=== PATIENT | male | born 1960 | race Caucasian/White ===

== ENCOUNTER 2019-06-18 09:49 | Inpatient (IN) ==
[2019-06-18] MEDS ORDERED: ONDANSETRON INJ 2 MG/ML 2 ML VIAL IV STA (10:10)
[2019-06-18] MEDS ORDERED: FAMOTIDINE 20MG/5ML IV PUSH IV STA (10:10)
[2019-06-18] MEDS ORDERED: MoRPHine SULFATE 4 MG/ML 1 ML CARP\\VIAL IV PRN ×2 (10:10→14:16)
[2019-06-18] MEDS ORDERED: SODIUM CHLORIDE 0.9% 500 ML IV SCH (10:15)
[2019-06-18 10:21] LABS: Basophils # (auto) 0.03 K/uL (0-0.2); Basophils % (auto) 0.4 %; Eosinophils # (auto) 0.23 K/uL (0-0.5); Eosinophils % (auto) 2.7 %; Hemoglobin 14.3 g/dL (14.0-18.0); Immature Granulocytes # (auto) 0.03 K/uL (0.00-0.02); Immature Granulocytes % (auto) 0.4 %; Lymphocytes # (auto) 1.52 K/uL (1.2-3.4); Lymphocytes % (auto) 18.1 %; Mean Corpuscular Hemoglobin 27.2 pg (25-34); Mean Corpuscular Volume 79.8 fL (80-100); Mean Platelet Volume 9.4 fL (7.4-10.4); Monocytes # (auto) 0.39 K/uL (0.11-0.59); Monocytes % (auto) 4.6 %; Neutrophils # (auto) 6.21 K/uL (1.4-6.5); Neutrophils % (auto) 73.8 %; Platelet Count 247 K/uL (130-400); RDW Coefficient of Variation 16.4 % (11.5-14.5); RDW Standard Deviation 47.9 fL (36.4-46.3); Red Blood Count 5.26 M/uL (4.7-6.1); White Blood Count 8.41 K/uL (4.8-10.8)
[2019-06-18 10:29] LABS: Alanine Aminotransferase 170 U/L (12-78); Albumin Level 4.3 gm/dl (3.4-5.0); Aspartate Aminotransferase 190 U/L (15-37); BUN Creatinine Ratio 9.3 (10-20); Blood Urea Nitrogen 11 mg/dl (7-18); Calcium 9.2 mg/dl (8.5-10.1); Carbon Dioxide 24 mmol/L (21-32); Chloride 101 mmol/L (98-107); Creatinine Clr Calc Pharmacy 79.5 ml/min; Est GFR (African American) 75.5; Est GFR (Non-African American) 65.1; Glucose 284 mg/dl (70-99); Lipase 585 U/L (73-393); Potassium 4.3 mmol/L (3.5-5.1); Sodium 133 mmol/L (136-145)
[2019-06-18 10:30] LABS: Partial Thromboplastin Ratio 0.9; Partial Thromboplastin Time 24.2 Seconds (21.0-31.0); Prothrombin Time 10.5 Seconds (9.0-12.0)
[2019-06-18 10:34] LABS: Albumin Globulin Ratio 1.1 (0.9-2); Alkaline Phosphatase 107 U/L (45-117); Globulin 3.8 gm/dl (2.5-4.0); Total Protein 8.1 gm/dl (6.4-8.2); Troponin I < 0.015 ng/ml (0-0.045)
--- NOTE | 2019-06-18 10:43 | XRay Report ---
XR chest 1V portable CLINICAL HISTORY: cp dyspnea COMPARISON STUDY: No previous studies for comparison. FINDINGS: Minimal atelectasis left base. Lungs otherwise appear clear. Diaphragms are smooth. No evid ence for cardiac enlargement. IMPRESSION: Minimal atelectasis left base. Otherwise negative study. The above report was generated using voice recognition software. It may contain grammatical, syntax or spelling errors. Electronically signed by: Mendoza Florentino M.D. 06/18/2019 10:42 AM
--- NOTE | 2019-06-18 10:57 | CT Scan Report ---
CT OF THE ABDOMEN AND PELVIS WITHOUT CONTRAST CLINICAL HISTORY: Severe pain, possible bowel rupture or obstruction. COMPARISON STUDY: No previous studies for comparison. TECHNIQUE: Axial images of the abdomen and pelvis were obtained without IV contrast. Images were revi ewed in the axial, sagittal, and coronal planes. Automated exposure control was utilized for the zaire dy. A dose lowering technique was utilized adhering to the principles of ALARA. FINDINGS: Lung bases are unremarkable. There is fatty infiltration of the liver. There is mild biliar y ductal dilatation. There are numerous calculi within the common bile duct that measure up to approx imately 1.2 cm. There are gallstones within the gallbladder. There is no definite pericholecystic inf iltration. The gallbladder is slightly distended. There is no peripancreatic infiltration. No pancrea tic ductal dilatation is present. Evaluation of the abdomen and pelvis is suboptimal on this unenhanc ed examination. The spleen, adrenal glands and kidneys are unremarkable. There is no hydronephrosis. Mild mesenteric infiltration is noted with small lymph nodes. There is colonic diverticulosis without evidence for acute diverticulitis. The appendix is normal. No suspicious osseous lesions are noted. There is no lymphadenopathy. No free air, pneumatosis or portal venous gas is present. IMPRESSION: 1. Numerous common bile duct calculi that measure up to approximately 1.2 cm. Mild biliary ductal dil atation. No peripancreatic infiltration. 2. Cholelithiasis. Mild gallbladder distention without significant pericholecystic infiltration. 3. Fatty liver. 4. 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 Electronically signed by: Bryan Last M.D. 06/18/2019 10:56 AM
--- NOTE | 2019-06-18 11:42 | Surgery Consultation ---
Date of Consultation June 18, 2019 Assessment & Plan (1) Choledocholithiasis: This is a 59y M who presents to the [facility] ED on 06/18/19 with complaints of chest pain and shortness of breath. Workup included a CT a/p which revealed multiple common bile duct stones, mild biliary ductal dilation, and gallstones with mild gallbladder distention. Cardiac workup thus far has been unremarkable and troponin negative. Labs showing normal WBC and tbili:1.0, but elevated transaminases and a lipase of 585. Would recommend admission under medicine with a GI consultation for consideration of an ERCP vs further imaging. We will follow along with you for any surgical needs this admission. Supervising Physician Co-Signing Physician Notes Patient seen and examined, labs and imaging reviewed, agree with above. 59-year-old male who presented to the emergency department with epigastric and chest pain starting this morning. Pain is slightly improved. No prior episodes in the past. On exam he is mildly tender to palpation in the right upper quadrant epigastrium, no guarding or rebound. Afebrile, vital signs stable. Labs show mildly elevated LFTs and bilirubin, along with an elevated lipase. CT scan showed cholelithiasis with some dilated common bile duct and likely choledocholithiasis. Of note his brother did have pancreatic cancer, and he has UC. Assessment: Choledocholithiasis with gallstone pancreatitis Patient admitted to medicine, GI consulted for ERCP, plan for ERCP tomorrow Plan for laparoscopic cholecystectomy likely this hospital stay after pancreatitis resolves The risk the procedure were discussed to include but not limited to bleeding, infection, retained stone, bile leak, damage surrounding structures including common bile duct, need for future more extensive surgery, conversion open, and the risk of anesthesia History of Present Illness History of Present Illness This is a 59y M with a PMH of ulcerative colitis and DM2 who presents to [facility] ED on 06/18/19 with complaints of chest pain and shortness of breath. Patient states that the chest pain developed this AM while walking around at work and when he developed progressive shortness of breath, he requested a ride to the ED from a co-worker. EKG in the ED was limited, but appears to be NSR. CXR showed some atelectasis and troponin negative. A CT a/p was obtained that revealed numerous common bile duct calculi that measure up to approximately 1.2 cm, mild biliary ductal dilatation, cholelithiasis, and mild gallbladder distention without significant pericholecystic infiltration. WBC 8.41, Tbili: 1, AST 190, AL: 170, alkp: 170, and lipase 585. General surgery was consulted for further evaluation given gallbladder findings. Patient states he ate cheerio's at breakfast. Patient denies any nausea, vomiting, diarrhea, constipation, abdominal pain, bloating, fevers, or urinary symptoms. His last BM was this AM. Patient had vasectomy x2, but denies any abdominal surgery in the past. Allergies Allergy/AdvReac Type Severity Reaction Status Date / Time No Known Allergies Allergy Unverified 06/18/19 12:05 Patient History Medical History No pertinent past medical history Type 2 diabetes mellitus Ulcerative colitis Family History Other No pertinent family history in first degree relatives Social History Preferred Language: Austrian Communication Ability: Effective Youth Liaison Officer Required: No Beliefs That Will Affect Care: None Current Living Situation: Spouse and Family Other Information That Helps Us Care for You: No Feels Safe at Home: Yes Safety Concerns: Feels Safe At This Time Smoking Status: Never smoker Do You Dip or Chew Tobacco: No ; Second Hand Exposure: No ; Tobacco Cessation Education Requested by Patient: No Hx Alcohol Use: Yes Hx Substance Use: No Review of Systems Constitutional: + chills and + sweats; no fever Respiratory: + dyspnea on exertion Cardiovascular: + chest pain Gastrointestinal: no abdominal pain, no bloating, no nausea, no vomiting and no change in bowel habits Genitourinary: no dysuria Physical Exam Physical Exam: awake/alert. shivering despite multiple blankets Constitutional: well developed, well nourished and + ill appearing Cardiovascular: Rate/Rhythm: regular rate Gastrointestinal (Abdomen): Percussion/Palpation: + guarding (likely due to shivering/chills); abdomen nontender Results & Data Vital Signs (Past 12 Hours) Vital Signs Temp Pulse Resp BP Pulse Ox 06/18/19 09:55 36.5 C 95 H 24 169/[address] OF THE ABDOMEN AND PELVIS WITHOUT CONTRAST CLINICAL HISTORY: Severe pain, possible bowel rupture or obstruction. COMPARISON STUDY: No previous studies for comparison. TECHNIQUE: Axial images of the abdomen and pelvis were obtained without IV contrast. Images were reviewed in the axial, sagittal, and coronal planes. Automated exposure control was utilized for the study. A dose lowering technique was utilized adhering to the principles of ALARA. FINDINGS: Lung bases are unremarkable. There is fatty infiltration of the liver. There is mild biliary ductal dilatation. There are numerous calculi within the common bile duct that measure up to approximately 1.2 cm. There are gallstones within the gallbladder. There is no definite pericholecystic infiltration. The gallbladder is slightly distended. There is no peripancreatic infiltration. No pancreatic ductal dilatation is present. Evaluation of the abdomen and pelvis is suboptimal on this unenhanced examination. The spleen, adrenal glands and kid neys are unremarkable. There is no hydronephrosis. Mild mesenteric infiltration is noted with small lymph nodes. There is colonic diverticulosis without evidence for acute diverticulitis. The appendix is normal. No suspicious osseous lesions are noted. There is no lymphadenopathy. No free air, pneumatosis or portal venous gas is present. IMPRESSION: 1. Numerous common bile duct calculi that measure up to approximately 1.2 cm. Mild biliary ductal dilatation. No peripancreatic infiltration. 2. Cholelithiasis. Mild gallbladder distention without significant pericholecystic infiltration. 3. Fatty liver. 4. 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 Electronically signed by: Bryan Last M.D. 06/18/2019 10:56 AM XR chest 1V portable CLINICAL HISTORY: cp dyspnea COMPARISON STUDY: No previous studies for comparison. FINDINGS: Minimal atelectasis left base. Lungs otherwise appear clear. Diaphragms are smooth. No evidence for cardiac enlargement. IMPRESSION: Minimal atelectasis left base. Otherwise negative study. The above report was generated using voice recognition software. It may contain grammatical, syntax or spelling errors. PG Care Time/CCT Total # of Minutes Spent Total Time Spent with Patient: Total time spent is greater than 50% in coordination of care (as documented) at patient's floor/unit and/or counseling patient:
--- NOTE | 2019-06-18 12:22 | History & Physical Report ---
Date of Service June 18, 2019 Assessment & Plan (1) Choledocholithiasis: This is a 59yo M with a PMH of DM II, ulcerative colitis, HTN, HLD and other medical problems listed below who presents with chest pain beginning this morning and was found to have choledocholithiasis and acute pancreatitis. -Epigastric/chest pain related to pancreatitis, choledocholithiasis -No troponin elevation, EKG with normal sinus rhythm -Tachycardic with HR ~ 115. Elevated liver enzymes with AST of 190 and ALT of 170. Lipase elevated at 585 -CT abd/pelvis w/o contrast showed multiple gallstones and CBD stones, mild biliary ductal dilatation, fatty liver, and mesenteric infiltration with small associated lymph nodes which favors sclerosing mesenteritis -Per GI:Continue IV fluids, advance to clear liquids, keep NPO after midnight for ERCP tomorrow 06/[address] Morgan Coker -Per gen surgery: plan for laparoscopic cholecystectomy likely this hospital stay after pancreatitis resolves -Started on empiric zosyn for possible ascending cholangitis in setting of chills and tachycardia. Follow blood cultures (2) Acute pancreatitis: Lipase of 585 in setting of choledocholithiasis -IV fluid resuscitation. Pain control -Advanced diet to clear liquids (3) Ulcerative colitis: Follows with Dr. Shields in clinic -Continue Lialda (4) Type 2 diabetes mellitus: A1c of 7.2 in December 2018. Repeat a1c ordered -Hold home agents -SSI while in-patient -BSG AC HS (5) HTN (hypertension): Normotensive -Continue lisinopril (6) HLD (hyperlipidemia): Continue statin (7) GERD (gastroesophageal reflux disease): Continue PPI DVT Ppx: SCDs Code status: FULL PCP: Jewel Dispo: Admitted to PCU. Plan to return home once medically stable. Patient seen in collaboration with Dr. Allred. Please see addendum. History of Present Illness Chief Complaint: chest pain Primary Care Provider: Mayo Holloway MD This is a 59yo M with a PMH of DM II, ulcerative colitis, HTN, HLD and other medical problems listed below who presents with chest pain beginning this morning. Developed chest pain/lower sternal pain around 0830 this morning with associated nausea, shortness of breath, chills and swelling. No radiation to jaw or arms. States that pain felt crushing and rated it a 7/10. Was having breakfast around the time that pain started. Came to ED for further evaluation. Found to be afebrile and tachycardic with HR 95-115. EKG with normal sinus rhythm. Initial troponin negative. Noted to have elevated liver enzymes with AST of 190 and ALT of 170. Lipase elevated at 585. 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 Pain had resolved after being given morphine in the ED. No longer nauseous. Denies any lightheadedness, visual changes, palpitations, shortness of breath, vomiting, dysuria, diarrhea or constipation. Has 2-3 bowel movements a day at baseline in setting of ulcerative colitis. Allergies Allergy/AdvReac Type Severity Reaction Status Date / Time No Known Allergies Allergy Unverified 06/18/19 12:05 Home Medications Home Medications Medication Instructions Recorded Confirmed Type aspirin 81 mg PO Q2D 06/18/19 06/18/19 History atorvastatin 20 mg PO HS 06/18/19 06/18/19 History cyanocobalamin (vitamin B-12) 1,000 mcg SUBLINGUAL DAILY 06/18/19 06/18/19 History dicyclomine 10 mg PO BID 06/18/19 06/18/19 History fenofibrate 160 mg PO HS 06/18/19 06/18/19 History glyburide 5 mg PO BID 06/18/19 06/18/19 History lisinopril 10 mg PO DAILY 06/18/19 06/18/19 History mesalamine [Lialda] 1.2 g PO BID 06/18/19 06/18/19 History metformin 500 mg PO BID 06/18/19 06/18/19 History omeprazole 20 mg PO Q2D 06/18/19 06/18/19 History sildenafil 100 mg PO DAILY PRN 06/18/19 06/18/19 History Past Med/Surg History Medical History GERD (gastroesophageal reflux disease) (Chronic) HLD (hyperlipidemia) (Chronic) HTN (hypertension) (Chronic) Ulcerative colitis (Chronic) Type 2 diabetes mellitus (Chronic) Surgical History History of colonoscopy (Chronic) History of esophagogastroduodenoscopy (EGD) (Chronic) Family History Brother Pancreatic cancer Gastric cancer Other Heart disease Social History Preferred Language: Zambian Communication Ability: Effective Coal Sampler Required: No Beliefs That Will Affect Care: None Current Living Situation: Spouse and Family Other Information That Helps Us Care for You: No Feels Safe at Home: Yes Safety Concerns: Feels Safe At This Time Smoking Status: Never smoker Do You Dip or Chew Tobacco: No ; Second Hand Exposure: No ; Tobacco Cessation Education Requested by Patient: No Hx Alcohol Use: Yes Alcohol type: beer Alcohol Intake Frequency: Weekly Alcohol Intake Frequency Comment: 10-12 beers weekly Hx Substance Use: No Review of Systems Review of Systems: At least ten systems reviewed and negative except as noted in the HPI. Physical Exam Physical Exam: General Appearance: WD/WN, vitals as above, NAD, pleasant, conversing easily Head: normocephalic, atraumatic Eyes: normal inspection, PERRL, conjunctivae normal, anicteric sclerae ENT: external ear and nose normal, oropharynx normal Neck: trachea midline, no thyromegaly normal visual inspection Respiratory: lungs clear to auscultation, no wheeze, rales, rhonchi. Normal insp/exp effort, no accessory muscle use Cardiovascular: regular rate, rhythm, no murmur appreciated, normal peripheral pulses. Vessels: no JVD or carotid bruit Chest: normal inspection of chest, no chest wall tenderness to palpation Abdomen/GI: normal bowel sounds, soft, nontender, no hepatosplenomegaly Extremities/Musculoskelatal: no cyanosis or clubbing, extremities motor strength 5/5 Neurologic: PERRL, EOMI, accommodation nl, no face palsy, no dysarthria CN's II-XI intact bilaterally and moves all extremities Psychiatric: A+Ox3, euthymic affect Skin: no rashes, normal color, warm/dry Results & Data Vital Signs (Past 12 Hours) Vital Signs Temp Pulse Resp BP Pulse Ox 06/18/19 09:55 36.5 C 95 H 24 169/98 H 97 Laboratory Results Short CBC 06/18/19 Range/Units 10:04 WBC 8.41 (4.8-10.8) K/uL Hgb 14.3 (14.0-18.0) g/dL Hct 42.0 (42-52) % Plt Count 247 (130-400) K/uL BMP 06/18/19 10:04 Sodium 133 L Potassium 4.3 Chloride 101 Carbon Dioxide 24 BUN 11 Creatinine 1.21 Glucose 284 H Calcium 9.2 Cardiac Enzymes 06/18/19 Range/Units 10:04 Troponin I < 0.015 (0-0.045) ng/ml Liver Function 06/18/19 Range/Units 10:04 Total Bilirubin 1.0 (0.2-1) mg/dl AST 190 H (15-37) U/L ALT 170 H (12-78) U/L Alkaline Phosphatase 107 (45-117) U/L Albumin 4.3 (3.4-5.0) gm/dl Urine 06/18/19 Range/Units 13:14 Urine Color Yellow Urine Appearance Clear (Clear) Urine pH 5.5 (4.5-7.5) Ur Specific [place] 1.019 (1.000-1.030) Urine Protein Negative (Negative) Urine Glucose (UA) 3+ H (Negative) Diagnostic Findings CXR: IMPRESSION: Minimal atelectasis left base. Otherwise negative study. CT abd/pelvis: IMPRESSION: 1. Numerous common bile duct calculi that measure up to approximately 1.2 cm. Mild biliary ductal dilatation. No peripancreatic infiltration. 2. Cholelithiasis. Mild gallbladder distention without significant pericholecystic infiltration. 3. Fatty liver. 4. 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 Code Status & VTE Plan VTE Prophylaxis Plan VTE Prophylaxis will be ordered: Yes Supervising Physician Co-Signing Physician Notes I have seen and examined the patient and have discussed the case with the provider above. I agree with the assessment and plan as stated with the following exceptions. The patient is a 59 yo M with gallstones who presents with acute lower chest pain. Cardiac workup was negative, however, elevated LFTs prompted imaging revealing evidence of choledocholithiasis. He does reports chills but no fevers. He does report some improvement in his chest pain since having some IVF in the ER, but his fluid were increased when tachycardia developed. Physical exam otherwise demonstrated a WNWD man in no acute distress who was mentating normally. Mucous membranes are dry. He had some TTP in the RUQ area but otherwise his abdomen was soft and nondistended. Lungs were clear to auscultation and heart exam was normal. No peripheral edema or JVD was present. He was oxygenating well on room air. Cont empiric Zosyn in setting of chills and tachycardia. Blood cultures pending. Appreciate GI input and plans for ERCP in am. General surgery consulted and plans for lap robby at some point. Cont LR @ 200cc/hr overnight and supportive care with pain control and anti-emetics as needed. DO Chalino (1) Acute pancreatitis Acute pancreatitis complication: unspecified Pancreatitis type: unspecified pancreatitis type Qualified Code(s): K85.90 - Acute pancreatitis without necrosis or infection, unspecified
--- NOTE | 2019-06-18 12:30 | Gastrointestinal Consultation ---
Date of Consultation June 18, 2019 Assessment & Plan (1) Choledocholithiasis: (2) Gallstones: (3) Elevated LFTs: Pt is a 59 y/o male who presented w mid CP, diaphoresis, and nausea w negative cardiac workup. Noted to have elevated LFTs and Lipase on eval, CT abd/pelvis w/o contrast showed signs of gallstones, CBD stones, dilated CBD to 1.2cm. ? mesenteric infiltration. - IVF support - OK for CL diet today, keep NPO after midnight for ERCP tomorrow 06/[address] Morgan Coker - Trend LFTs - Surgery following, appreciate recs - Symptomatic management w analgesics and antiemetics for now Supervising Physician Co-Signing Physician Notes Attending attestation I have seen, examined this patient, and agree with the findings and above by our mid-level provider JAMES Noonan, with the following additions -soft abdomen, -acute onset of epigastric/lower chest pain, cardiology w/o normal -CT with choledocholithiasis -Plan for ERCP tomorrow -Cholecystectomy per General Surgery History of Present Illness Reason for Consultation: Choledocholithiasis Requesting Physician: Dr. Karin Allred Attending Physician: Dr. Jason Bolaños History of Present Illness Pt is a 59 y/o male w hx of Ulcerative colitis controlled w Lialda who presented to ED w c/o chest pain started around 8:30a. He had breakfast around that time, cereal and banana. He started having mid chest pain w/o radiating associated w diaphoresis and nausea. He went to work and when pain got worse decided to go to ED for evaluation. VS stable, EKG and Troponin level is normal. It's noted that his transaminases were up in 100s, Lipase in 500s. CT abd/pelvis w/o contrast showed multiple gallstones and CBD stones, CBD 1.2cm, fatty liver, and mesenteric infiltration ? sclerosing mesenteritis. He had been given Morphine in ED, currently pain free and no longer having nausea. Allergies Allergy/AdvReac Type Severity Reaction Status Date / Time No Known Allergies Allergy Unverified 06/18/19 12:05 Home Medications Home Medications Medication Instructions Recorded Confirmed Type aspirin 81 mg PO Q2D 06/18/19 06/18/19 History atorvastatin 20 mg PO HS 06/18/19 06/18/19 History cyanocobalamin (vitamin B-12) 1,000 mcg SUBLINGUAL DAILY 06/18/19 06/18/19 History dicyclomine 10 mg PO BID 06/18/19 06/18/19 History fenofibrate 160 mg PO HS 06/18/19 06/18/19 History glyburide 5 mg PO BID 06/18/19 06/18/19 History lisinopril 10 mg PO DAILY 06/18/19 06/18/19 History mesalamine [Lialda] 1.2 g PO BID 06/18/19 06/18/19 History metformin 500 mg PO BID 06/18/19 06/18/19 History omeprazole 20 mg PO Q2D 06/18/19 06/18/19 History sildenafil 100 mg PO DAILY PRN 06/18/19 06/18/19 History Patient History Medical History No pertinent past medical history Type 2 diabetes mellitus Ulcerative colitis Family History Other No pertinent family history in first degree relatives Social History Preferred Language: Malay Communication Ability: Effective Funnel Setter Required: No Beliefs That Will Affect Care: None Current Living Situation: Spouse and Family Other Information That Helps Us Care for You: No Feels Safe at Home: Yes Safety Concerns: Feels Safe At This Time Smoking Status: Never smoker Do You Dip or Chew Tobacco: No ; Second Hand Exposure: No ; Tobacco Cessation Education Requested by Patient: No Hx Alcohol Use: Yes Hx Substance Use: No Review of Systems Review of Systems: All systems reviewed & are unremarkable except as noted in HPI & below Physical Exam Constitutional: WD/WN, vitals as above well groomed, cooperative and comfortable Eyes: PERRL, conjunctivae normal, anicteric sclerae ENMT: external ear and nose normal, oropharynx normal Respiratory: normal respiratory effort, lungs clear to auscultation Cardiovascular: RRR, no murmur, no edema Gastrointestinal (Abdomen): normal bowel sounds, soft, nontender, no hepatosplenomegaly Skin: no rashes, warm and dry no jaundice Psychiatric: A+Ox3, euthymic affect Lymphatic: no lymphedema Results & Data Vital Signs (Past 12 Hours) Vital Signs Temp Pulse Resp BP Pulse Ox 06/18/19 09:55 36.5 C 95 H 24 169/98 H 97
[2019-06-18 13:23] LABS: Appearance Urine Clear (Clear); Bilirubin Urine Negative (Negative); Blood Urine Negative (Negative); Color Urine Yellow; Glucose Urine UA 3+ (Negative); Ketones Urine Negative (Negative); Leukocyte Esterase Urine Negative (Negative); Nitrite Urine Negative (Negative); Protein Urine Negative (Negative); Specific Gravity Urine 1.019 (1.000-1.030); Urobilinogen Urine Negative (Negative); pH Urine 5.5 (4.5-7.5)
--- NOTE | 2019-06-18 13:58 | Emergency Department Note ---
Entered by Serafin Mejia acting as a scribe for Vipul Conte MD History of Present Illness General Chief complaint: Chest Pain Stated complaint: CHEST PAIN, SOB Time Seen by Provider: 06/18/19 10:10 Source: patient History of Present Illness Provider complaint: Chest pain Onset (ago): hour(s) 2 Location: chest Radiation: non-radiation Pain Consistency: + constant Maximum Pain Intensity: 8 Current Pain Intensity: 8 Relieved By: + none Exacerbated By: + other (Lying flat) Associated symptoms: + diaphoresis, + nausea/vomiting (No vomiting) and + shortness of breath The patient is a 59 year old male who presents to the Emergency Room with complaints of constant central chest pain that started about 2 hours ago. The patient rates the pain as an 8/10 and notes it is worse while he is lying flat. The patient reports that the pain does not radiate anywhere. The patient also endorses some shortness of breath and nausea. The patient adds that he is starting to feel diaphoretic as well. The patient states the chest pain started while he was walking leisurely and he has never experienced pain like this before. The patient reports that he has been healthy for the past few days. He also denies any cardiac history. Home Medications Home Medications Medication Instructions Recorded Confirmed Type aspirin 81 mg PO Q2D 06/18/19 06/18/19 History atorvastatin 20 mg PO HS 06/18/19 06/18/19 History cyanocobalamin (vitamin B-12) 1,000 mcg SUBLINGUAL DAILY 06/18/19 06/18/19 History dicyclomine 10 mg PO BID 06/18/19 06/18/19 History fenofibrate 160 mg PO HS 06/18/19 06/18/19 History glyburide 5 mg PO BID 06/18/19 06/18/19 History lisinopril 10 mg PO DAILY 06/18/19 06/18/19 History mesalamine [Lialda] 1.2 g PO BID 06/18/19 06/18/19 History metformin 500 mg PO BID 06/18/19 06/18/19 History omeprazole 20 mg PO Q2D 06/18/19 06/18/19 History sildenafil 100 mg PO DAILY PRN 06/18/19 06/18/19 History Allergies Allergy/AdvReac Type Severity Reaction Status Date / Time No Known Allergies Allergy Unverified 06/18/19 12:05 Past Med/Surg History Medical History No pertinent past medical history Type 2 diabetes mellitus Ulcerative colitis Family History Other No pertinent family history in first degree relatives Social History Preferred Language: Greenlandic Communication Ability: Effective Works[employer] Wellness Practitioner Required: No Beliefs That Will Affect Care: None Current Living Situation: Spouse and Family Other Information That Helps Us Care for You: No Feels Safe at Home: Yes Safety Concerns: Feels Safe At This Time Smoking Status: Never smoker Do You Dip or Chew Tobacco: No ; Second Hand Exposure: No ; Tobacco Cessation Education Requested by Patient: No Hx Alcohol Use: Yes Hx Substance Use: No Review of Systems See HPI for pertinent positives & negatives. and A total of 10 systems reviewed and were otherwise negative Physical Exam Vital Signs Vital Signs - 24 hr 06/18/19 09:55 06/18/19 10:31 Temperature 36.5 C Temperature Source Oral Sepsis Recent Fever Within 48 Hours No Sepsis New/Unexplained Change in Mental Status No Sepsis Action Taken by Nursing No Action Required Pulse Rate 95 H Respiratory Rate 24 Blood Pressure 169/98 H Blood Pressure Mean 121 Pulse Oximetry 97 Oxygen Delivery Method Room Air Room Air GENERAL: Patient is in moderate distress from pain. HEENT: No acute trauma, normocephalic atraumatic, mucous membranes moist, no nasal congestion, no scleral icterus. NECK: No stridor, no adenopathy, no meningismus, trachea is midline. LUNGS: Clear to auscultation bilaterally, no wheeze, no rhonchi, breath sounds equal. HEART: Without murmurs gallops or rubs, regular rate and rhythm. ABDOMEN: Soft, moderately tender to the epigastric region, bowel sounds positive, no hernias, no peritonitis. CHEST: Tender to the lower mid sternal chest wall. EXTREMITIES: No cyanosis or edema, full range of motion of all the joints without pain or difficulty, no signs for acute trauma. NEUROLOGIC: Oriented x 3, no acute motor or sensory deficits, no focal weakness. SKIN: No rash, no jaundice. Pale and mildly diaphoretic. Course 1007: Past medical records reviewed. The patient was evaluated in room C10, and a complete history and physical examination were performed. 1102: I spoke to [facility] PAC about the patient's case. He suggested I contact medicine and/or GI to accept the patient but surgery will be on consult. 1105: I reevaluated and updated the patient on results. We also discussed the treatment plan and he is agreeable. 1113: I spoke to Naina Orozco Lesly PAC, under Dr. Cahlino Grant about the patient's case. They are going to accept the patient for further evaluation. Consultations Consultation #1: I spoke to [facility] PAC about the patient's case. He suggested I contact medicine and/or GI to accept the patient but surgery will be on consult. Time: 11:02 Consultation #2: I spoke to Naina Grace PAC, under Dr. Chalino Grant about the patient's case. They are going to accept the patient for further evaluation. Time: 11:13 Administered Medications Discontinued Medications Famotidine (Pepcid 20mg Iv Push) 20 mg IV ONE STA Stop: 06/18/19 10:11 Last Admin: 06/18/19 10:22 Dose: 20 mg Documented by: [id number] Sodium Chloride (Nss) 500 mls @ 999 mls/hr IV .Q31M ARCELIA Stop: 06/18/19 10:45 Last Infusion: 06/18/19 10:57 Dose: 0 mls/hr Documented by: [id number] Admin: 06/18/19 10:23 Dose: 999 mls/hr Documented by: [id number] Morphine Sulfate (Morphine Sulfate) 4 mg IV Q15M PRN PRN Reason: Pain Stop: 07/02/19 10:09 Last Admin: 06/18/19 10:23 Dose: 4 mg Documented by: [id number] Ondansetron HCl (Zofran) 4 mg IV NOW STA Stop: 06/18/19 10:11 Last Admin: 06/18/19 10:23 Dose: 4 mg Documented by: [id number] Medical Decision Making Differential Diagnosis Differential Diagnosis includes: PR, angina, aortic dissection, AAA, bowel rupture, pancreatitis, biliary colic, musculoskeletal pain, pneumonia, hernia, and bowel obstruction, amongst others. Medical Records Attestation: I reviewed the patient's medical records. Home Medications Current Medication List: was personally reviewed by me Laboratory Data Attestation: I reviewed the patient's lab results. Result diagrams: 06/18/19 10:04 06/18/19 10:04 Lab Results 06/18/19 06/18/19 06/18/19 Range/Units 10:04 10:04 10:04 WBC 8.41 (4.8-10.8) K/uL RBC 5.26 (4.7-6.1) M/uL Hgb 14.3 (14.0-18.0) g/dL Hct 42.0 (42-52) % MCV 79.8 L (80-100) fL MCH 27.2 (25-34) pg MCHC 34.0 (32-36) g/dL RDW Std Deviation 47.9 H (36.4-46.3) fL RDW Coeff of Gala 16.4 H (11.5-14.5) % Plt Count 247 (130-400) K/uL MPV 9.4 (7.4-10.4) fL Immature Gran % (Auto) 0.4 % Neut % (Auto) 73.8 % Lymph % (Auto) 18.1 % [place] % (Auto) 4.6 % Eos % (Auto) 2.7 % Baso % (Auto) 0.4 % Immature Gran # (Auto) 0.03 H (0.00-0.02) K/uL Neut # (Auto) 6.21 (1.4-6.5) K/uL Lymph # (Auto) 1.52 (1.2-3.4) K/uL [place] # (Auto) 0.39 (0.11-0.59) K/uL Eos # (Auto) 0.23 (0-0.5) K/uL Baso # (Auto) 0.03 (0-0.2) K/uL PT 10.5 (9.0-12.0) Seconds INR 1.0 (0.9-1.1) APTT 24.2 (21.0-31.0) Seconds PTT Ratio 0.9 Sodium 133 L (136-145) mmol/L Potassium 4.3 (3.5-5.1) mmol/L Chloride 101 (98-107) mmol/L Carbon Dioxide 24 (21-32) mmol/L Anion Gap 8.0 (3-11) BUN 11 (7-18) mg/dl Creatinine 1.21 (0.6-1.4) mg/dl Est Cr Clr Drug Dosing 79.5 ml/min Est GFR ( Amer) 75.5 Est GFR (Non-Af Amer) 65.1 BUN/Creatinine Ratio 9.3 L (10-20) Glucose 284 H (70-99) mg/dl Calcium 9.2 (8.5-10.1) mg/dl Total Bilirubin 1.0 (0.2-1) mg/dl AST 190 H (15-37) U/L ALT 170 H (12-78) U/L Alkaline Phosphatase 107 (45-117) U/L Troponin I < 0.015 (0-0.045) ng/ml Total Protein 8.1 (6.4-8.2) gm/dl Albumin 4.3 (3.4-5.0) gm/dl Globulin 3.8 (2.5-4.0) gm/dl Albumin/Globulin Ratio 1.1 (0.9-2) Lipase 585 H (73-393) U/L Imaging Data Radiologist's Impression: Radiology results as stated below per my review and the radiologist's interpretation: XR chest 1V portable CLINICAL HISTORY: cp dyspnea COMPARISON STUDY: No previous studies for comparison. FINDINGS: Minimal atelectasis left base. Lungs otherwise appear clear. Diaphragms are smooth. No evidence for cardiac enlargement. IMPRESSION: Minimal atelectasis left base. Otherwise negative study. The above report was generated using voice recognition software. It may contain grammatical, syntax or spelling errors. Electronically signed by: Mendoza Florentino M.D. 06/18/2019 10:[address] OF THE ABDOMEN AND PELVIS WITHOUT CONTRAST CLINICAL HISTORY: Severe pain, possible bowel rupture or obstruction. COMPARISON STUDY: No previous studies for comparison. TECHNIQUE: Axial images of the abdomen and pelvis were obtained without IV contrast. Images were reviewed in the axial, sagittal, and coronal planes. Automated exposure control was utilized for the study. A dose lowering technique was utilized adhering to the principles of ALARA. FINDINGS: Lung bases are unremarkable. There is fatty infiltration of the liver. There is mild biliary ductal dilatation. There are numerous calculi within the common bile duct that measure up to approximately 1.2 cm. There are gallstones within the gallbladder. There is no definite pericholecystic infiltration. The gallbladder is slightly distended. There is no peripancreatic infiltration. No pancreatic ductal dilatation is present. Evaluation of the abdomen and pelvis is suboptimal on this unenhanced examination. The spleen, adrenal glands and kidneys are unremarkable. There is no hydronephrosis. Mild mesenteric infiltration is noted with small lymph nodes. There is colonic diverticulosis without evidence for acute diverticulitis. The appendix is normal. No suspicious osseous lesions are noted. There is no lymphadenopathy. No free air, pneumatosis or portal venous gas is present. IMPRESSION: 1. Numerous common bile duct calculi that measure up to approximately 1.2 cm. Mild biliary ductal dilatation. No peripancreatic infiltration. 2. Cholelithiasis. Mild gallbladder distention without significant pericholecystic infiltration. 3. Fatty liver. 4. 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 Electronically signed by: Bryan Last M.D. 06/18/2019 10:56 AM ECG Data Attestation: I personally reviewed and interpreted this ECG as follows: Indication: chest pain Rate (beats per minute): 93 Rhythm: normal sinus ECG Findings: Other (No ST elevation, no PACs or PVCs. QTC of 460. ) Blood Pressure Blood Pressure Findings: Elevated blood pressure Blood Pressure Disposition: further management by hospitalist [facility] Narrative There is no leukocytosis or concerning anemia. No coagulopathy. No renal failure or significant electrolyte abnormality. Blood sugar was elevated at 284. Of note, the patient is diabetic. There were some elevations to the AST and ALT, the bilirubin was normal. Lipase was elevated at 585. Urinalysis showed glucose, no evidence for infection. Chest film did not show pneumonia or CHF. EKG showed a sinus rhythm, no acute ischemia. Cardiac enzyme testing x1 is not consistent with acute cardiac injury. Abdominal and pelvis CT shows a dilated common bile duct with gallstones. No bowel obstruction or bowel perforation was noted. The patient received IV saline, he was given IV morphine, IV Pepcid and IV Zofran. Patient appears to have biliary colic and biliary obstruction. This has caused his pain and also has led to some pancreatitis. Hospitalization is warranted. I spoke with general surgery, the patient is being brought into the hospital by the medical service and will also be seen by GI. Surgery will see the patient in consult. The patient is improved with the above medications on board, he seems more comfortable. I spoke to the patient about his findings, I did speak with case management. The on-call hospitalist was consulted. Impression & Plan Acute pancreatitis, Precordial chest pain, Gallstones Discharge Plan Visit Data *Final* Discharge Date/Time: 06/18/19 13:41 Chief Complaint: Chest Pain Stated Complaint: CHEST PAIN, SOB ED Provider: Vipul Conte Discharge Problem: Acute pancreatitis, Precordial chest pain, Gallstones Patient Disposition: Admitted As Inpatient Discharge Instructions Interventions: ED Discharge Assessment Last Done: 06/18/19 13:41 Discharge Problem: Acute pancreatitis Qualifiers: Pancreatitis type: unspecified pancreatitis type Acute pancreatitis complication: unspecified Qualified Code(s): K85.90 - Acute pancreatitis without necrosis or infection, unspecified The scribe's documentation has been prepared under my direction and personally reviewed by me in its entirety. I confirm that the note above accurately reflect s all work, treatment, procedures, and medical decision making performed by me.
[2019-06-18] MEDS ORDERED: GLUCOSE 40% GEL 15 GM TUBE PO PRN (14:16)
[2019-06-18] MEDS ORDERED: GLUCOSE 10 TABS/TUBE PO PRN (14:16)
[2019-06-18] MEDS ORDERED: GLUCAGON FOR INJ 1 MG VIAL SQ PRN (14:16)
[2019-06-18] MEDS ORDERED: ONDANSETRON INJ 2 MG/ML 2 ML VIAL IV PRN (14:16)
[2019-06-18] MEDS ORDERED: CARBOHYDRATES FOR HYPOGLYCEMIA PO PRN (14:16)
[2019-06-18] MEDS ORDERED: PIPERACILL/TAZOBAC CONSULT ACTIVE PRN (14:21)
[2019-06-18] MEDS ORDERED: PIPERACILLIN/TAZOBACTAM 3.375 GM in DEXTROSE 5% 100 ML IV ONE (15:00)
[2019-06-18] MEDS: LACTATED RINGER'S 1,000 ML IV SCH ×2 (15:06→20:39)
[2019-06-18] MEDS ORDERED: OXYCODONE HCL IR 5 MG TAB (IMMEDIATE RELEASE) PO PRN (16:20)
[2019-06-18] MEDS: INSULIN ASPART 100 UNITS/ML 3 ML PEN SC SCH ×2 (16:43→20:43)
[2019-06-18] MEDS: ATORVASTATIN 20 MG TAB PO SCH (20:41)
[2019-06-18] MEDS: DICYCLOMINE HCL 10 MG CAP PO SCH (20:42)
[2019-06-18] MEDS: FENOFIBRATE NANOCRYSTALLIZED 145 MG TABLET PO SCH (20:42)
[2019-06-18] MEDS: ZOLPIDEM TARTRATE 5 MG TAB PO PRN (22:20)
[2019-06-19] MEDS ORDERED: PIPERACILLIN/TAZOBACTAM 3.375 GM in DEXTROSE 5% 100 ML IV ONE (00:45)
[2019-06-19] MEDS: LACTATED RINGER'S 1,000 ML IV SCH ×5 (01:42→21:48)
[2019-06-19] MEDS ORDERED: PIPERACILLIN/TAZOBACTAM 3.375 GM in DEXTROSE 5% 100 ML IV SCH (06:00)
[2019-06-19] MEDS: DEXTROSE 50% 50 ML SYRINGE IV PRN ×2 (07:07→11:39)
[2019-06-19 07:15] LABS: Hematocrit (blood only) 37.1 % (42-52); Hemoglobin 12.3 g/dL (14.0-18.0); Mean Corpuscular Hemoglobin 26.9 pg (25-34); Mean Corpuscular Hgb Conc 33.2 g/dL (32-36); Mean Corpuscular Volume 81.2 fL (80-100); Mean Platelet Volume 9.7 fL (7.4-10.4); Platelet Count 202 K/uL (130-400); RDW Coefficient of Variation 16.8 % (11.5-14.5); RDW Standard Deviation 49.9 fL (36.4-46.3); Red Blood Count 4.57 M/uL (4.7-6.1); White Blood Count 7.95 K/uL (4.8-10.8)
[2019-06-19 07:56] LABS: Albumin Globulin Ratio 0.9 (0.9-2); Albumin Level 3.1 gm/dl (3.4-5.0); BUN Creatinine Ratio 8.2 (10-20); Bilirubin,Total 4.5 mg/dl (0.2-1); Creatinine Clr Calc Pharmacy 78.3 ml/min; Est GFR (African American) 74.7; Est GFR (Non-African American) 64.5; Globulin 3.3 gm/dl (2.5-4.0); Potassium 3.8 mmol/L (3.5-5.1); Total Protein 6.4 gm/dl (6.4-8.2)
[2019-06-19] MEDS ORDERED: INDOMETHACIN 50 MG SUPP PR SCH (08:00)
[2019-06-19] MEDS: INSULIN ASPART 100 UNITS/ML 3 ML PEN SC SCH ×4 (08:25→20:38)
[2019-06-19 08:26] LABS: Estimated Average Glucose 177 mg/dl; Hemoglobin A1C 7.8 % (4.5-5.6)
--- NOTE | 2019-06-19 09:08 | Gastroenterology Progress Note ---
Date of Service June 19, 2019 Assessment & Plan (1) Choledocholithiasis: (2) Gallstones: (3) Elevated LFTs: Pt is a 59 y/o male who presented w mid CP, diaphoresis, and nausea w negative cardiac workup. Noted to have elevated LFTs and Lipase on eval, CT abd/pelvis w/o contrast showed signs of gallstones, CBD stones, dilated CBD to 1.2cm. ? mesenteric infiltration. - IVF support - NPO for ERCP by Dr. Morgan Coker in OR this afternoon - Trend LFTs - Surgery following, appreciate recs - Symptomatic management w analgesics and antiemetics PRN Supervising Physician Co-Signing Physician Notes I saw and evaluated the patient. We are planning for ercp today for gallstone extraction. The patient and I have discussed the risks of the procedure to include bleeding, infection, perforation, pain, pancreatitis and need for follow-up studies. Subjective Pt c/o VARGAS this AM. Did have hypoglycemia BSG in 50s, now up to 70 after Dextrose. LFTs w increased Tbili to 4, AST/ALT improved. He denies any abd pain, n/v, no BMs overnight. Review of Systems Review of Systems: All systems reviewed & are unremarkable except as noted in HPI & below Physical Exam Constitutional: WD/WN, vitals as above well groomed, cooperative and comfortable Eyes: PERRL, conjunctivae normal, anicteric sclerae ENMT: external ear and nose normal, oropharynx normal Respiratory: normal respiratory effort, lungs clear to auscultation Cardiovascular: RRR, no murmur, no edema Gastrointestinal (Abdomen): normal bowel sounds, soft, nontender, no hepatosplenomegaly Skin: no rashes, warm and dry no jaundice Psychiatric: A+Ox3, euthymic affect Lymphatic: no lymphedema Results & Data Vital Signs (Past 12 Hours) Vital Signs Temp Pulse Pulse Resp BP Pulse Ox 06/19/19 07:18 36.7 C 79 18 118/72 95 06/19/19 03:16 36.8 C 86 18 109/68 96 06/19/19 00:00 94 H 06/18/19 23:47 36.8 C 95 H 18 113/70 97
[2019-06-19] MEDS: CYANOCOBALAMIN 500 MCG TABLET (VITAMIN B-12) PO SCH (09:10)
[2019-06-19] MEDS: DICYCLOMINE HCL 10 MG CAP PO SCH ×2 (09:11→20:39)
[2019-06-19] MEDS: lisinopriL 10 MG TAB PO SCH (09:11)
[2019-06-19] MEDS: PANTOprazole 40 MG TAB PO SCH (09:12)
[2019-06-19] MEDS: ASPIRIN 81 MG ECTAB PO SCH (10:41)
--- NOTE | 2019-06-19 10:45 | Surgery Progress Note ---
Date of Service June 19, 2019 Assessment & Plan (1) Choledocholithiasis: 59-year-old male with choledocholithiasis and gallstone pancreatitis. He is plan for ERCP today, we discussed the possibility of doing cholecystectomy immediately following the ERCP in the operating room today, and the patient is agreeable to this. Plan for ERCP by GI today Plan for laparoscopic cholecystectomy with possible cholangiogram in the operating room today immediately following ERCP The risk the procedure were discussed to include but not limited to bleeding, infection, retained stone, bile leak, conversion open, damage to surrounding structures including common bile duct, need for future more extensive surgery, and the risk of anesthesia Preoperative antibiotics Diagnosis, details the procedure and recovery, and plan of care discussed with the patient and his , all questions were answered, the patient expressed understanding agrees the plan of care as stated. Present on Admission?: Yes (2) Acute pancreatitis: (3) Type 2 diabetes mellitus: (4) Ulcerative colitis: (5) HTN (hypertension): (6) HLD (hyperlipidemia): (7) GERD (gastroesophageal reflux disease): Subjective 59-year-old male admitted with choledocholithiasis and gallstone pancreatitis. Tachycardia overnight, transferred to telemetry, tachycardia since resolved. Overall he feels better this morning with no pain. Plan for ERCP today with Dr. Coker. Review of Systems Review of Systems: All systems reviewed & are unremarkable except as noted in HPI & below Physical Exam Constitutional: WD/WN, vitals as above Eyes: PERRL, conjunctivae normal, anicteric sclerae ENMT: external ear and nose normal, oropharynx normal Neck: trachea midline, no thyromegaly Respiratory: normal respiratory effort, lungs clear to auscultation Cardiovascular: RRR, no murmur, no edema Gastrointestinal (Abdomen): normal bowel sounds, soft, nontender, no hepatosplenomegaly Musculoskeletal: no cyanosis or clubbing, extremities motor strength 5/5 Skin: no rashes, warm and dry Neurologic: PERRL, EOMI, accommodation nl, no face palsy, no dysarthria Psychiatric: A+Ox3, euthymic affect Lymphatic: no cervical or axillary lymphadenopathy Results & Data Vital Signs (Past 12 Hours) Vital Signs Temp Pulse Pulse Resp BP Pulse Ox 06/19/19 07:18 36.7 C 79 18 118/72 95 06/19/19 03:16 36.8 C 86 18 109/68 96 06/19/19 00:00 94 H 06/18/19 23:47 36.8 C 95 H 18 113/70 97 Laboratory Results Laboratory Results - last 24 hr 06/18/19 06/18/19 06/18/19 13:14 15:17 16:21 WBC RBC Hgb Hct MCV MCH MCHC RDW Std Deviation RDW Coeff of Gala Plt Count MPV Sodium Potassium Chloride Carbon Dioxide Anion Gap BUN Creatinine Est Cr Clr Drug Dosing Est GFR ( Amer) Est GFR (Non-Af Amer) BUN/Creatinine Ratio Glucose POC Glucose 158 H 176 H Estimat Average Glucose Hemoglobin A1c Calcium Total Bilirubin AST ALT Alkaline Phosphatase Total Protein Albumin Globulin Albumin/Globulin Ratio Lipase Urine Color Yellow Urine Appearance Clear Urine pH 5.5 Ur Specific [place] 1.019 Urine Protein Negative Urine Glucose (UA) 3+ H Urine Ketones Negative Urine Blood Negative Urine Nitrite Negative Urine Bilirubin Negative Urine Urobilinogen Negative Ur Leukocyte Esterase Negative 06/18/19 06/19/19 06/19/19 20:18 06:52 06:52 WBC 7.95 RBC 4.57 L Hgb 12.3 L Hct 37.1 L MCV 81.2 MCH 26.9 MCHC 33.2 RDW Std Deviation 49.9 H RDW Coeff of Gala 16.8 H Plt Count 202 MPV 9.7 Sodium 136 Potassium 3.8 Chloride 104 Carbon Dioxide 25 Anion Gap 7.0 BUN 10 Creatinine 1.22 Est Cr Clr Drug Dosing 78.3 Est GFR ( Amer) 74.7 Est GFR (Non-Af Amer) 64.5 BUN/Creatinine Ratio 8.2 L Glucose 50 L* POC Glucose 141 H Estimat Average Glucose Hemoglobin A1c Calcium 9.0 Total Bilirubin 4.5 H D AST 157 H ALT 279 H Alkaline Phosphatase 73 Total Protein 6.4 D Albumin 3.1 L Globulin 3.3 Albumin/Globulin Ratio 0.9 Lipase 131 Urine Color Urine Appearance Urine pH Ur Specific [place] Urine Protein Urine Glucose (UA) Urine Ketones Urine Blood Urine Nitrite Urine Bilirubin Urine Urobilinogen Ur Leukocyte Esterase 06/19/19 06/19/19 06/19/19 06:52 06:54 06:57 WBC RBC Hgb Hct MCV MCH MCHC RDW Std Deviation RDW Coeff of Glaa Plt Count MPV Sodium Potassium Chloride Carbon Dioxide Anion Gap BUN Creatinine Est Cr Clr Drug Dosing Est GFR ( Amer) Est GFR (Non-Af Amer) BUN/Creatinine Ratio Glucose POC Glucose 54 L* 60 L* Estimat Average Glucose 177 Hemoglobin A1c 7.8 H Calcium Total Bilirubin AST ALT Alkaline Phosphatase Total Protein Albumin Globulin Albumin/Globulin Ratio Lipase Urine Color Urine Appearance Urine pH Ur Specific [place] Urine Protein Urine Glucose (UA) Urine Ketones Urine Blood Urine Nitrite Urine Bilirubin Urine Urobilinogen Ur Leukocyte Esterase 06/19/19 07:16 WBC RBC Hgb Hct MCV MCH MCHC RDW Std Deviation RDW Coeff of Gala Plt Count MPV Sodium Potassium Chloride Carbon Dioxide Anion Gap BUN Creatinine Est Cr Clr Drug Dosing Est GFR ( Amer) Est GFR (Non-Af Amer) BUN/Creatinine Ratio Glucose POC Glucose 77 Estimat Average Glucose Hemoglobin A1c Calcium Total Bilirubin AST ALT Alkaline Phosphatase Total Protein Albumin Globulin Albumin/Globulin Ratio Lipase Urine Color Urine Appearance Urine pH Ur Specific [place] Urine Protein Urine Glucose (UA) Urine Ketones Urine Blood Urine Nitrite Urine Bilirubin Urine Urobilinogen Ur Leukocyte Esterase PG Care Time/CCT Total # of Minutes Spent Total Time Spent with Patient: Total time spent is greater than 50% in coordination of care (as documented) at patient's floor/unit and/or counseling patient: (1) Acute pancreatitis Acute pancreatitis complication: unspecified Pancreatitis type: unspecified pancreatitis type Qualified Code(s): K85.90 - Acute pancreatitis without necrosis or infection, unspecified
--- NOTE | 2019-06-19 10:46 | Anesthesiology Consultation ---
Date of Service June 19, 2019 History Surgery Operation Date: 06/19/19 13:30 Proposed Procedures p Endoscopic Retrograde Cholangiopancreatogram - Morgan godwin Laparoscopic Cholecystectomy - Hiram Dela Cruz, , FACS Height/Weight Height: 6 ft Weight: 95.9 kg Allergies Allergy/AdvReac Type Severity Reaction Status Date / Time No Known Allergies Allergy Unverified 06/18/19 12:05 Medications Home Medications Medication Instructions Recorded Confirmed Last Taken aspirin 81 mg PO Q2D 06/18/19 06/18/19 06/16/19 atorvastatin 20 mg PO HS 06/18/19 06/18/19 Unknown cyanocobalamin (vitamin B-12) 1,000 mcg SUBLINGUAL DAILY 06/18/19 06/18/19 Unknown dicyclomine 10 mg PO BID 06/18/19 06/18/19 Unknown fenofibrate 160 mg PO HS 06/18/19 06/18/19 Unknown glyburide 5 mg PO BID 06/18/19 06/18/19 Unknown lisinopril 10 mg PO DAILY 06/18/19 06/18/19 Unknown mesalamine [Lialda] 1.2 g PO BID 06/18/19 06/18/19 Unknown metformin 500 mg PO BID 06/18/19 06/18/19 Unknown omeprazole 20 mg PO Q2D 06/18/19 06/18/19 06/17/19 sildenafil 100 mg PO DAILY PRN 06/18/19 06/18/19 Unknown Active Medications Generic Name Dose Route Start Last Admin Trade Name Freq PRN Reason Stop Dose Admin Aspirin 81 mg 06/19/19 09:00 06/19/19 10:41 Ecotrin Ectab PO 07/19/19 08:59 Not Given Q2D@0900 ARCELIA Atorvastatin Calcium 20 mg 06/18/19 21:00 06/18/19 20:41 Lipitor PO 07/18/19 20:59 Not Given HS ARCELIA Cyanocobalamin 1,000 mcg 06/19/19 09:00 06/19/19 09:10 Vitamin B-12 PO 07/19/19 08:59 1,000 mcg DAILY ARCELIA Administration Dextrose 25 - 50 ml 06/18/19 14:16 06/19/19 07:07 Dextrose 50% IV 07/18/19 14:15 25 ml UD PRN Administration Hypoglycemia Protocol Protocol Dicyclomine HCl 10 mg 06/18/19 21:00 06/19/19 09:11 Bentyl PO 07/18/19 20:59 10 mg BID ARCELIA Administration Fenofibrate 145 mg 06/18/19 21:00 06/18/19 20:42 Tricor PO 07/18/19 20:59 Not Given HS ARCELIA Lactated Ringer's 1,000 mls @ 200 mls/hr 06/18/19 14:15 06/19/19 10:40 Lr IV 07/18/19 14:14 200 mls/hr .Q5H ARCELIA Administration Piperacillin Sod/Tazobactam 115 mls @ 28.75 mls/hr 06/19/19 06:00 06/19/19 10:12 Sod 3.375 gm/ Dextrose IV 06/29/19 05:59 Infused Q8H ARCELIA Infusion Protocol Insulin Aspart 0 units 06/18/19 16:30 06/19/19 08:25 Novolog Flexpen SC 07/18/19 16:29 Not Given ACHS ARCELIA Lisinopril 10 mg 06/19/19 09:00 06/19/19 09:11 Zestril PO 07/19/19 08:59 10 mg DAILY ARCELIA Administration Miscellaneous 1 ea 06/18/19 16:00 06/19/19 09:10 Order Awaiting Action N/A 07/18/19 15:59 Not Given QS ARCELIA Morphine Sulfate 3 mg 06/18/19 14:16 06/18/19 17:30 Morphine Sulfate IV 07/02/19 14:15 3 mg Q3H PRN Administration Pain Pantoprazole Sodium 40 mg 06/19/19 09:00 06/19/19 09:12 Protonix PO 07/19/19 08:59 40 mg Q2D@0900 ARCELIA Administration Zolpidem Tartrate 5 mg 06/18/19 16:06 06/18/19 22:20 Ambien PO 07/18/19 16:05 5 mg HS PRN Administration Sleep Past Medical History Medical History GERD (gastroesophageal reflux disease) (Chronic) HLD (hyperlipidemia) (Chronic) HTN (hypertension) (Chronic) Ulcerative colitis (Chronic) Type 2 diabetes mellitus (Chronic) Past Family History Family History Brother Pancreatic cancer Gastric cancer Other Heart disease Past Surgical History Surgical History History of colonoscopy (Chronic) History of esophagogastroduodenoscopy (EGD) (Chronic) Social History Smoking Status: Never smoker Do You Dip or Chew Tobacco: No Hx Alcohol Use: Yes Alcohol type: beer alcohol intake frequency: other Alcohol Intake Frequency Comment: 6 to 7 times in a week Hx Substance Use: No substance use type: does not use Physical Exam Vital Signs Last Vital Signs Temp 98.1 F 06/19/19 07:18 Pulse 79 06/19/19 07:18 Resp 18 06/19/19 07:18 BP 118/72 06/19/19 07:18 Pulse Ox 95 06/19/19 07:18 Testing Laboratory Results 06/19/19 06:52 06/19/19 06:52 PT 10.5 Seconds (9.0-12.0) 06/18/19 10:04 INR 1.0 (0.9-1.1) 06/18/19 10:04 APTT 24.2 Seconds (21.0-31.0) 06/18/19 10:04 Hemoglobin A1c 7.8 % (4.5-5.6) H 06/19/19 06:52 Urine Color Yellow 06/18/19 13:14 Urine Appearance Clear (Clear) 06/18/19 13:14 Urine pH 5.5 (4.5-7.5) 06/18/19 13:14 Ur Specific Berry 1.019 (1.000-1.030) 06/18/19 13:14 Urine Protein Negative (Negative) 06/18/19 13:14 Urine Glucose (UA) 3+ (Negative) H 06/18/19 13:14 Urine Ketones Negative (Negative) 06/18/19 13:14 Urine Nitrite Negative (Negative) 06/18/19 13:14 Ur Leukocyte Esterase Negative (Negative) 06/18/19 13:14 06/18/19 14:55 Anaerobic Blood Culture - Preliminary Blood Gram negative bacilli 06/19/19 06/19/19 06/19/19 07:16 06:57 06:54 POC Glucose 77 60 L* 54 L* Electrocardiogram Date: 06/18/19 Normal sinus rhythm, rate 93 bpm Normal ECG No previous ECGs available Confirmed by Berhane Lopez ([id number]) on 06/18/2019 9:58:31 PM Chest X-Ray Date: 06/18/19 IMPRESSION: Minimal atelectasis left base. Otherwise negative study.
--- NOTE | 2019-06-19 11:34 | Hospitalist Progress Note ---
Date of Service June 19, 2019 Assessment & Plan (1) Choledocholithiasis: Presented with abdominal pain. Found to have cholelithiasis, choledocholithiasis, and elevated lipase. Started on piperacillin/tazobactam for possible cholangitis. GI and General Surgery consulted. ERCP and cholecystectomy planned for later today. (2) Cholelithiasis: As noted above. (3) Acute pancreatitis: CT demonstrated choledocholithiasis with dilatation of common bile duct. Lipase 585. However, no CT evidence of pancreatitis. Management of biliary tract disease as discussed above. (4) Ulcerative colitis: Usually well controlled on mesalamine. Mesalamine can be associated with pancreatitis, but elevated lipase most likely secondary to choledocholithiasis. (5) HTN (hypertension): Hemodynamically stable. Continue lisinopril. (6) Type 2 diabetes mellitus: Diabetes mellitus type 2 usually managed with metformin and glyburide. Oral agents on hold secondary to acute illness. Random blood sugar at time of admission to 84. Hypoglycemic this morning. Insulin coverage reduced and 5% dextrose added to IV fluids. (7) DVT prophylaxis: No anticoagulants due to anticipated procedures. SCDs. Ambulate. (8) Discharge planning issues: Anticipated discharge to home. Family Medicine follow-up with Dr. Holloway. Subjective Recheck for multiple problems. Patient seen in their room around 1130. Admitted yesterday with abdominal pain. Found to have cholelithiasis, choledocholithiasis, and elevated lipase. GI and General Surgery consulted. ERCP and cholecystectomy planned for later today. Had some chills yesterday, but no fever, chills, sweats today. Abdominal pain improved. No nausea or vomiting. Review of Systems: Constitutional- no fever. Cardiac- no chest pain. Pulmonary- no cough or SOB. GI- as noted above. - no urinary symptoms. Otherwise, as noted above. Physical Exam Constitutional: no acute distress Respiratory: no respiratory distress Auscultation: lungs clear to auscultation bilaterally Cardiovascular: Rate/Rhythm: regular rate and regular rhythm Heart Sounds: no gallop, no murmur and no cardiac rub Vessels: no JVD Extremities: no calf tenderness and no edema Gastrointestinal (Abdomen): normal bowel sounds, soft, nontender, no hepatosplenomegaly Skin: no rashes, warm and dry Psychiatric: Orientation: alert and oriented x 3 Results & Data Vital Signs (Past 12 Hours) Vital Signs Temp Pulse Pulse Resp BP Pulse Ox 06/19/19 07:18 36.7 C 79 18 118/72 95 06/19/19 03:16 36.8 C 86 18 109/68 96 06/19/19 00:00 94 H 06/18/19 23:47 36.8 C 95 H 18 113/70 97 Laboratory Results 06/19/19 06:52 06/19/19 06:52 (1) Acute pancreatitis Acute pancreatitis complication: unspecified Pancreatitis type: unspecified pancreatitis type Qualified Code(s): K85.90 - Acute pancreatitis without necrosis or infection, unspecified
[2019-06-19] MEDS ORDERED: D5W AND LACTATED RINGERS 1,000 ML IV SCH (11:45)
[2019-06-19] MEDS ORDERED: ePHEDrine sulfate 50 MG/ML AMP IV PRN (12:54)
[2019-06-19] MEDS ORDERED: ATROPINE SULFATE 0.1 MG/ML 10ML SYR IV PRN (12:54)
[2019-06-19] MEDS ORDERED: ONDANSETRON INJ 2 MG/ML 2 ML VIAL IV PRN (12:54)
[2019-06-19] MEDS ORDERED: fentaNYL citrate 100 MCG/2 ML VIAL IV PRN (12:54)
[2019-06-19] MEDS ORDERED: LIDOCAINE HCL 2% 2 ML VIAL/AMP(20MG/ML) INFIL ONE (13:01)
[2019-06-19] MEDS ORDERED: fentaNYL citrate 100 MCG/2 ML VIAL ONE ×3 (13:01→14:35)
[2019-06-19] MEDS ORDERED: ONDANSETRON INJ 2 MG/ML 2 ML VIAL ONE (13:01)
[2019-06-19] MEDS ORDERED: BUPIVACAINE 0.5 % 5 MG/1 ML MPF 30ML VIAL ONE (13:01)
[2019-06-19] MEDS ORDERED: MIDAZOLAM HCL 1 MG/ML 2ML VIAL ONE (13:01)
[2019-06-19] MEDS ORDERED: PROPOFOL IV EMULSION 10 MG/ML 20 ML VIAL IV ONE (13:01)
[2019-06-19] MEDS ORDERED: LARYING-O-JET KIT (LTA) ONE (13:01)
[2019-06-19] MEDS ORDERED: NEOSTIGMINE METHYLSULFATE 5 MG/5 ML SYR ONE (13:02)
[2019-06-19] MEDS ORDERED: ROCURONIUM BROMIDE 10 MG/ML 5 ML VIAL ONE (13:02)
[2019-06-19] MEDS ORDERED: GLYCOPYRROLATE 0.2 MG/ML VIAL ONE ×2 (13:02)
[2019-06-19] MEDS ORDERED: INDOMETHACIN 50 MG SUPP PR STA (13:26)
--- NOTE | 2019-06-19 13:26 | History & Physical Bridge Note ---
Date of Service June 19, 2019 History & Physical Bridge Note I have examined the patient, reviewed the History & Physical and in the interval since the performance of the History & Physical I have noted the following changes of clinical significance: no changes noted
--- NOTE | 2019-06-19 14:51 | Fluoroscopy Report ---
[place] ERCP biliary ductal CLINICAL HISTORY: Cholelithiasis and gallbladder distention. Choledocholithiasis. COMPARISON STUDY: CT scan dated 06/18/2019 FLUOROSCOPY TIME: 1 minute 9 seconds. NUMBER OF FLUOROSCOPIC IMAGES: 14 FINDINGS: 14 fluoroscopic spot images are provided for interpretation. The common bile duct was cannu lated and retrograde fashion. Multiple common bile duct filling defects are visualized consistent wit h calculi. A sphincterotomy appears to have been performed. A balloon catheter was swept through the common bile duct. The final images demonstrate biliary enteric stent. IMPRESSION: Fluoroscopic spot images obtained during ERCP, sphincterotomy, common bile duct sweep, a nd biliary enteric stent placement. Electronically signed by: Tong Holloway M.D. 06/19/2019 2:49 PM
--- NOTE | 2019-06-19 14:53 | GI REPORT ---
Patient Name: Lance Alcaraz Procedure Date: 06/19/2019 1:38 PM Date of : 1960 Admit Type: Inpatient Age: 59 Gender: Male Attending MD: Morgan Coker DO Procedure: ERCP Providers: Morgan Coker DO Referring MD: Hiram Stearns Do Indications: Bile duct stone on Computed Tomogram Scan Medicines: General Anesthesia Complications: No immediate complications. Estimated blood loss: Minimal. Estimated Blood Loss: Estimated blood loss was minimal. Procedure: Pre-Anesthesia Assessment: - Prior to the procedure, a History and Physical was performed, and patient medications, allergies and sensitivities were reviewed. The patient's tolerance of previous anesthesia was reviewed. - The risks and benefits of the procedure and the sedation options and risks were discussed with the patient. All questions were answered and informed consent was obtained. - Patient identification and proposed procedure were verified prior to the procedure by the physician, the nurse and the sustainable communities designer. The procedure was verified in the procedure room. - Pre-procedure physical examination revealed no contraindications to sedation. - ASA Grade Assessment: III - A patient with severe systemic disease. - After reviewing the risks and benefits, the patient was deemed in satisfactory condition to undergo the procedure. - The anesthesia plan was to use general anesthesia. - Immediately prior to administration of medications, the patient was re-assessed for adequacy to receive sedatives. - The heart rate, respiratory rate, oxygen saturations, blood pressure, adequacy of pulmonary ventilation, and response to care were monitored throughout the procedure. - The physical status of the patient was re-assessed after the procedure. After obtaining informed consent, the scope was passed under direct vision. Throughout the procedure, the patient's blood pressure, pulse, and oxygen saturations were monitored continuously. The Scope was introduced through the mouth, and advanced to the duodenum and used to inject contrast into the bile duct. The ERCP was accomplished without difficulty. The patient tolerated the procedure well. Findings: The market development director film was normal. The total fluoroscopy exposure time was 1 minute and 8 seconds. The bile duct was deeply cannulated with the short-nosed traction sphincterotome and 0.035 in Acrobat 2 guidewire during the first cannulation attempt. Contrast was injected. I personally interpreted the bile duct images. Contrast extended to the entire biliary tree. The main bile duct was moderately dilated and diffusely dilated, with a stone causing an obstruction. The largest diameter was 15 mm. The main bile duct contained filling defect(s) thought to be a stone. Biliary sphincterotomy was made with a monofilament Fusion OMNI sphincterotome using ERBE electrocautery. There was no post-sphincterotomy bleeding. To discover objects, the biliary tree was swept with a 15 mm balloon starting at the bifurcation. Many stones were removed. No stones remained. Pus was swept from the duct. One 7 Fr by 7 cm biliary stent with a full external pigtail and a full internal pigtail was placed 7 cm into the common bile duct. Bile flowed through the stent. The stent was in good position. One 7 Fr by 4 cm biliary stent with a full external pigtail and a full internal pigtail was placed into the common bile duct. Bile flowed through the stent. The stent was in good position. Indomethacin 100 mg was given via suppository to decrease the risk of post-ERCP pancreatitis (PEP). The endoscope was withdrawn from the patient. Impression: - Choledocholithiasis was found. Complete removal was accomplished by biliary sphincterotomy and balloon extraction. - The biliary tree was swept and pus was found. - Two biliary stents were placed into the common bile duct. - Indomethacin given to decrease risk of post-ERCP pancreatitis. Recommendation: - Observe patient's clinical course following today's ERCP with therapeutic intervention. - Repeat ERCP in 6 weeks to remove stent. - Use broad spectrum antibiotics for 10 days. Morgan Coker D.O. Morgan Coker DO 06/19/2019 2:53:26 PM This report has been signed electronically. Note Initiated On: 06/19/2019 1:38 PM Number of Addenda: 0 I attest to the content of the Intraoperative Record and orders documented therein, exceptions below {[id number]}
--- NOTE | 2019-06-19 14:55 | Communication Note ---
Date of Service: June 19, 2019 The patient underwent ERCP this afternoon. We removed numerous gallstones and noted that the patient had pus in his common bile duct consistent with ch olangitis. 2 biliary stents were placed Numerous gallstones were removed Recommendations May have clear liquids today from my perspective Continue broad-spectrum antibiotics for total of 10 days due to underlying cholangitis Avoid use of nonsteroidals for 5 days of possible please Repeat ERCP in 6 to 8 weeks Please call with any questions or concerns
[2019-06-19] MEDS ORDERED: METOPROLOL TARTRATE 1 MG/ML VIAL IV ONE (15:02)
--- NOTE | 2019-06-19 15:33 | Operative Report ---
[facility] Post Operative Report Pre & Post Diagnosis Operation Date: 06/19/19 13:30 Pre-Op Diagnosis: ACUTE PANCREATITIS, CHOLEDOCHOLITHIASIS Post-Op Diagnosis: ACUTE PANCREATITIS, CHOLEDOCHOLITHIASIS, cholecystitis I identified the patient and participated in the time-out.: Yes Procedure Operation Date: 06/19/19 13:30 Actual Procedures s Laparoscopic Cholecystectomy(Not Applicable) - Hiram Dela Cruz DO, DINA Surgeon Hiram Dela Cruz DO, DINA Hand Woven Carpet And Rug Mender Rosendo Perez Estimated Blood Loss 10 Findings Consistent with Post-Op Diagnosis ERCP performed prior to surgery with multiple gallstones removed from the common bile duct, purulent drainage consistent with cholangitis, stents placed. Chronic inflammation of the gallbladder with omental adhesions. Critical view of safety obtained. Dilated cystic duct divided using barbour loaded endoscopic stapler. Good hemostasis. Specimens Gallbladder Anesthesia Type General Complications none Disposition Accompanied Patient To Recovery: No Disposition: Recovery Room Indications 59-year-old male admitted with choledocholithiasis and gallstone pancreatitis, plan for ERCP by gastroenterology followed by laparoscopic cholecystectomy possible cholangiogram. The risks of the procedure were discussed, all questions were answered, and the patient agreed to proceed with surgery as planned. Description of Procedure The patient was properly identified, consented, and taken to the operating room where he was placed in the supine position. He underwent ERCP by gastroenterology prior to procedure. Please see their note for full details, multiple stones were removed from the common bile duct there is purulent drainage from the duct. We then proceeded with laparoscopic cholecystectomy. General endotracheal anesthesia was induced. SCDs and a safety belt were placed. Preoperative antibiotics were administered. The patient's abdomen was prepped and draped in the standard sterile fashion. A surgical timeout was performed and all parties were in agreement that this was the correct patient and procedure to be performed and we continued as planned. An incision was made superior and to the left of the umbilicus overlying the rectus muscle and the Veress needle was inserted. Saline drop test confirmed entry into the peritoneum. The abdomen was insufflated with carbon dioxide which the patient tolerated without incident. The abdomen was then entered using the Optiview technique and a 5 mm trocar. The laparoscope was inserted and no damage from initial trocar or Veress needle placement was noted, no gross abnormalities were noted within the 4 quadrants of the abdomen. An 11 mm port was placed in the subxiphoid position and two 5 mm ports were then placed in the right subcostal position. The patient was placed in reverse Trendelenburg position and rotated towards the left. There is acute on chronic inflammation of the gallbladder with omental adhesions to the gallbladder which were taken down with blunt dissection. The dome of the gallbladder was retracted towards the left upper quadrant and the infundibulum was retracted toward the right lower quadrant revealing Calot's triangle. Peritoneal attachments were taken down with electrocautery and blunt dissection. The cystic duct and artery were circumferentially dissected. A window of safety was obtained showing the cystic duct entering the gallbladder with no aberrant structures noted. The cystic duct was dilated would not accommodate the clip metrology technician. The 11 mm port was replaced with a 12 mm port. The cystic duct divided using a barbour loaded 30 mm endoscopic stapler. The cystic artery was doubly clipped and divided. The gallbladder was then lifted off the gallbladder fossa with electrocautery. The gallbladder was placed in an Endo Catch bag and removed through the subxiphoid port site. The right upper quadrant was irrigated and hemostasis was found to be good. 5 mm trochars were removed under direct visualization and the abdomen was allowed to collapse. The subxiphoid port site fascia was closed with 0 Vicryl suture. The wound was irrigated, and the skin of all ports was closed with 4-0 Monocryl subcuticular sutures. Dermabond was placed over the wounds. The patient was extubated in the operating room and taken to the PACU where he recovered without apparent incident. All sponge, instrument and needle counts were correct at the conclusion of the procedure. The patient tolerated the procedure well. The physician's it administrative assistant was present and scrubbed for the entirety of the case and was essential in positioning the patient, prepping and draping, retraction and exposure, driving the laparoscope, removal of the gallbladder, closure of the incisions, and placement of the dressings. I attest to the content of the Intraoperative Record and any orders documented therein. Any exceptions are noted below.
--- NOTE | 2019-06-19 16:08 | Anesthesiology Progress Note ---
Date of Service June 19, 2019 Anesthesia Post Procedure Vital Signs Vital Signs: Temp Pulse Pulse Pulse Resp BP BP 06/19/19 16:04 87 16 107/62 06/19/19 15:55 85 17 109/67 06/19/19 15:45 92 H 19 123/73 06/19/19 15:37 96.8 F L 94 H 18 130/78 06/19/19 12:40 98.6 F 82 18 121/77 06/19/19 11:43 98.2 F 80 18 115/71 06/19/19 08:00 78 06/19/19 07:18 98.1 F 79 18 118/72 06/19/19 03:16 98.2 F 86 18 109/68 06/19/19 00:00 94 H 06/18/19 23:47 98.2 F 95 H 18 113/70 06/18/19 19:50 98.8 F 96 H 19 112/66 Pulse Ox 06/19/19 16:04 96 06/19/19 15:55 98 06/19/19 15:45 100 06/19/19 15:37 98 06/19/19 12:40 96 06/19/19 11:43 95 06/19/19 08:00 06/19/19 07:18 95 06/19/19 03:16 96 06/19/19 00:00 06/18/19 23:47 97 06/18/19 19:50 97 Pain Intensity Bilateral Abdomen: Pain Intensity: 3 Chest: Pain Intensity: 3 Transfer of Care Handoff Completed per policy Notes Mental Status: alert / awake / arousable and participated in evaluation Patient Amnestic to Procedure: Yes Nausea / Vomiting: adequately controlled Pain: adequately controlled Airway Patency, RR, SpO2: stable & adequate BP & HR: stable & adequate Hydration State: stable & adequate Anesthetic Complications: no major complications apparent and Pt Satisfied with anesthetic care
--- NOTE | 2019-06-19 16:38 | Post Operative Brief Note ---
Immediate Post Op Note v1 Date of Surgery June 19, 2019 Pre & Post Diagnosis Operation Date: 06/19/19 13:30 Pre-Op Diagnosis: ACUTE PANCREATITIS, CHOLEDOCHOLITHIASIS Post-Op Diagnosis: ACUTE PANCREATITIS, CHOLEDOCHOLITHIASIS I identified the patient and participated in the time-out.: Yes Procedure Operation Date: 06/19/19 13:30 Actual Procedures p Endoscopic Retrograde Cholangiopancreatogram(Not Applicable) - Morgan godwin Laparoscopic Cholecystectomy(Not Applicable) - Hiram Dela Cruz DO, FACS Surgeon Morgan Coker Rental Sales Agent Rosendo Perez Estimated Blood Loss 10 Findings See Below (ERCP with choledocholithiasis / cholangitis) Anesthesia Type General
[2019-06-19] MEDS ORDERED: MoRPHine SULFATE 2 MG/ML CARP IV PRN (16:41)
[2019-06-19] MEDS ORDERED: OXYCODONE/ACETAMINOPHEN 5mg/325mg TAB PO PRN (16:41)
[2019-06-19] MEDS ORDERED: MoRPHine SULFATE 4 MG/ML 1 ML CARP\\VIAL IV PRN (16:41)
[2019-06-19] MEDS: PIPERACILLIN/TAZOBACTAM 4.5 GM in DEXTROSE 5% 100 ML IV SCH ×2 (17:30→21:51)
[2019-06-19] MEDS: ATORVASTATIN 20 MG TAB PO SCH (20:38)
[2019-06-19] MEDS: FENOFIBRATE NANOCRYSTALLIZED 145 MG TABLET PO SCH (20:38)
[2019-06-19] MEDS: LIALDA 1.2 GM PO SCH (20:39)
[2019-06-19] MEDS: OXYCODONE/ACETAMINOPHEN 5mg/325mg TAB PO PRN (21:48)
[2019-06-19] MEDS: ZOLPIDEM TARTRATE 5 MG TAB PO PRN (21:48)
[2019-06-20] MEDS: PIPERACILLIN/TAZOBACTAM 4.5 GM in DEXTROSE 5% 100 ML IV SCH ×2 (06:40→13:45)
[2019-06-20 07:11] LABS: Mean Corpuscular Hemoglobin 27.1 pg (25-34); Mean Corpuscular Hgb Conc 34.3 g/dL (32-36); Mean Corpuscular Volume 79.2 fL (80-100); Mean Platelet Volume 9.7 fL (7.4-10.4); Platelet Count 170 K/uL (130-400); RDW Coefficient of Variation 16.7 % (11.5-14.5); RDW Standard Deviation 48.3 fL (36.4-46.3); Red Blood Count 4.42 M/uL (4.7-6.1); White Blood Count 5.36 K/uL (4.8-10.8)
[2019-06-20 07:36] LABS: Albumin Level 2.7 gm/dl (3.4-5.0); Calcium 8.5 mg/dl (8.5-10.1); Creatinine Clr Calc Pharmacy 72.8 ml/min; Est GFR (African American) 76.3; Est GFR (Non-African American) 65.8; Potassium 3.9 mmol/L (3.5-5.1)
[2019-06-20 07:38] LABS: Albumin Globulin Ratio 0.8 (0.9-2); Bilirubin,Total 4.7 mg/dl (0.2-1); Globulin 3.3 gm/dl (2.5-4.0)
[2019-06-20] MEDS: INSULIN ASPART 100 UNITS/ML 3 ML PEN SC SCH ×4 (08:38→21:24)
[2019-06-20] MEDS: DICYCLOMINE HCL 10 MG CAP PO SCH ×2 (08:43→21:20)
[2019-06-20] MEDS: lisinopriL 10 MG TAB PO SCH (08:44)
[2019-06-20] MEDS: LIALDA 1.2 GM PO SCH ×2 (08:44→21:20)
[2019-06-20] MEDS: CYANOCOBALAMIN 500 MCG TABLET (VITAMIN B-12) PO SCH (08:44)
[2019-06-20] MEDS: OXYCODONE/ACETAMINOPHEN 5mg/325mg TAB PO PRN ×3 (08:45→21:20)
--- NOTE | 2019-06-20 09:51 | Surgery Progress Note ---
Date of Service June 20, 2019 Assessment & Plan (1) Choledocholithiasis: POD#1 ERCP with GI and laparoscopic cholecystectomy Patient overall looks well During ERCP multiple stones removed and two stents placed; lap robby performed thereafter WBC: 5.3 today, Tbili up slightly to 4.7, AST: 70, ALT:182 Continue IV zosyn for now, infectious disease consultation in place for guidance on abx choice & duration Diet advancement per GI Patient will need to follow up in clinic with Dr. Dela Cruz within 2 weeks for a post op check Supervising Physician Co-Signing Physician Notes Patient seen and examined, labs and imaging reviewed, agree with above. POD #1 ERCP and lap robby for cholangitis. Blood cultures grew out gram-negative rods yesterday. He is on IV antibiotics x7 days per ID recommendations. Overall fe eling well, incisions healing well with no evidence of infection. Tolerating clear liquids. Okay to advance to regular diet, continue antibiotics per ID. Patient may shower. Subjective Patient tolerating liquid diet. Denies nausea or vomiting. Has some sadia- incisional soreness. Physical Exam Physical Exam: awake/alert Respiratory: normal respiratory effort Gastrointestinal (Abdomen): Inspection/Auscultation: + abdomen distended (mild) Percussion/Palpation: + abdomen tender (mildly sadia-incisionally) and abdomen soft Results & Data Vital Signs (Past 12 Hours) Vital Signs Temp Pulse Pulse Resp BP Pulse Ox Pulse Ox 06/20/19 09:03 36.6 C 90 16 100/67 94 06/20/19 08:00 94 06/20/19 07:25 82 06/20/19 06:59 36.5 C 85 18 106/69 95 06/20/19 03:20 36.4 C L 83 17 101/66 96 06/20/19 00:00 87 06/19/19 23:09 36.4 C L 89 18 96/62 L 96 PG Care Time/CCT Total # of Minutes Spent Total Time Spent with Patient: Total time spent is greater than 50% in coordination of care (as documented) at patient's floor/unit and/or counseling patient:
--- NOTE | 2019-06-20 09:57 | Infectious Disease Consult ---
Date of Consultation June 20, 2019 Assessment & Plan (1) Gram-negative bacteremia: 59-year-old diabetic male with acute cholecystitis, cholangitis, choledocholithiasis, and pancreatitis, with gram-negative bacteremia. Zosyn appropriate therapy for now pending final identification and sensitivities. Depending on clinical response, will need minimum of 7 days of IV antibiotics, may be able to treat with home IV therapy once recovered and organism identified. Watch closely for development of worsening pancreatitis. Will follow. (2) Cholangitis: (3) Choledocholithiasis: (4) Acute pancreatitis: History of Present Illness Reason for Consultation: Gram-negative bacteremia Attending Physician: Gerald Eduardo MD History of Present Illness 59-year-old male with history of diabetes mellitus, ulcerative colitis, hypertension, hyperlipidemia, who was admitted June 18 with acute onset of substernal chest pain without radiation, rated 7 out of 10 in intensity. He immediately came to the emergency room where troponins were negative, but was found to have elevation of liver enzymes and lipase, and was found to have evidence of acute cholecystitis with multiple stones, along with evidence of pancreatitis. Yesterday he underwent cholecystectomy with stent placement with purulence found in the biliary duct. He was started on IV Zosyn, and blood cultures now reported positive for gram-negative bacilli. Patient still complaining of significant amount of postoperative pain, but afebrile and hemodynamically stable overnight. Denies any shortness of breath, chest pain has resolved. Allergies Allergy/AdvReac Type Severity Reaction Status Date / Time No Known Allergies Allergy Unverified 06/18/19 12:05 Home Medications Home Medications Medication Instructions Recorded Confirmed Type aspirin 81 mg PO Q2D 06/18/19 06/18/19 History atorvastatin 20 mg PO HS 06/18/19 06/18/19 History cyanocobalamin (vitamin B-12) 1,000 mcg SUBLINGUAL DAILY 06/18/19 06/18/19 His tory dicyclomine 10 mg PO BID 06/18/19 06/18/19 History fenofibrate 160 mg PO HS 06/18/19 06/18/19 History glyburide 5 mg PO BID 06/18/19 06/18/19 History lisinopril 10 mg PO DAILY 06/18/19 06/18/19 History mesalamine [Lialda] 1.2 g PO BID 06/18/19 06/18/19 History metformin 500 mg PO BID 06/18/19 06/18/19 History omeprazole 20 mg PO Q2D 06/18/19 06/18/19 History sildenafil 100 mg PO DAILY PRN 06/18/19 06/18/19 History oxycodone-acetaminophen [Percocet] 1 - 2 tab PO .every 4-6 hours PRN 06/19/19 Rx #15 tab Patient History Medical History GERD (gastroesophageal reflux disease) (Chronic) HLD (hyperlipidemia) (Chronic) HTN (hypertension) (Chronic) Ulcerative colitis (Chronic) Type 2 diabetes mellitus (Chronic) Surgical History History of colonoscopy (Chronic) History of esophagogastroduodenoscopy (EGD) (Chronic) Family History Brother Pancreatic cancer Gastric cancer Other Heart disease Social History Preferred Language: Luxembourger Communication Ability: Effective Yarn Sorter Required: No Beliefs That Will Affect Care: None Current Living Situation: Spouse and Family Other Information That Helps Us Care for You: No Feels Safe at Home: Yes Safety Concerns: Feels Safe At This Time Smoking Status: Never smoker Do You Dip or Chew Tobacco: No ; Second Hand Exposure: No ; Tobacco Cessation Education Requested by Patient: No Hx Alcohol Use: Yes Alcohol type: beer Alcohol Intake Frequency: Weekly Alcohol Intake Frequency Comment: 10-12 beers weekly Hx Substance Use: No Review of Systems Review of Systems: All systems reviewed & are unremarkable except as noted in HPI & below Physical Exam Constitutional: WD/WN, vitals as above comfortable; no acute distress Eyes: PERRL, conjunctivae normal, anicteric sclerae ENMT: external ear and nose normal, oropharynx normal Neck: trachea midline, no thyromegaly neck nontender Respiratory: normal respiratory effort, lungs clear to auscultation normal percussion; does not use accessory muscles Cardiovascular: Rate/Rhythm: regular rate and regular rhythm Heart Sounds: normal S1 and normal S2; no gallop, no murmur and no cardiac rub Vessels: normal peripheral pulses; no JVD Gastrointestinal (Abdomen): Inspection/Auscultation: + abdomen distended and + hyperactive bowel sounds Percussion/Palpation: + abdomen tender (Epigastrium and right upper quadrant); no hepatosplenomegaly and no abdominal mass Musculoskeletal: no cyanosis or clubbing, extremities motor strength 5/5 Spine: thoracic spine normal to inspection and lumbar spine normal to inspection; no cervical spinal tenderness Skin: no rashes, warm and dry normal turgor; no lesions Neurologic: patellar DTR's 2+ bilat, sensation intact no focal motor deficits Psychiatric: A+Ox3, euthymic affect Orientation: cooperative Lymphatic: no cervical or axillary lymphadenopathy no inguinal lymphadenopathy Results & Data Vital Signs (Past 12 Hours) Vital Signs Temp Pulse Pulse Resp BP Pulse Ox Pulse Ox 06/20/19 09:03 36.6 C 90 16 100/67 94 06/20/19 08:00 94 06/20/19 07:25 82 06/20/19 06:59 36.5 C 85 18 106/69 95 06/20/19 03:20 36.4 C L 83 17 101/66 96 06/20/19 00:00 87 06/19/19 23:09 36.4 C L 89 18 96/62 L 96 Laboratory Results Short CBC 06/20/19 Range/Units 06:49 WBC 5.36 (4.8-10.8) K/uL Hgb 12.0 L (14.0-18.0) g/dL Hct 35.0 L (42-52) % Plt Count 170 (130-400) K/uL BMP 06/20/19 06:49 Sodium 134 L Potassium 3.9 Chloride 103 Carbon Dioxide 23 BUN 10 Creatinine 1.20 Glucose 169 H Calcium 8.5 Liver Function 06/20/19 Range/Units 06:49 Total Bilirubin 4.7 H (0.2-1) mg/dl AST 70 H (15-37) U/L ALT 182 H (12-78) U/L Alkaline Phosphatase 69 (45-117) U/L Albumin 2.7 L (3.4-5.0) gm/dl Diagnostic Findings Microbiology 06/18/19 15:04 Blood Aerobic Blood Culture - Preliminary No growth in Aerobic bottle after 24 hours. 06/18/19 15:04 Blood Anaerobic Blood Culture - Preliminary Gram negative bacilli 06/18/19 14:55 Blood Aerobic Blood Culture - Preliminary No growth in Aerobic bottle after 24 hours. 06/18/19 14:55 Blood Anaerobic Blood Culture - Preliminary Gram negative bacilli Service Date: 06/18/19 [facility] Phy:Interpreting Phy: Bryan Last MD Admit Phy: Ordering Phy: Vipul Conte M.D. cc: ~ CT OF THE ABDOMEN AND PELVIS WITHOUT CONTRAST CLINICAL HISTORY: Severe pain, possible bowel rupture or obstruction. COMPARISON STUDY: No previous studies for comparison. TECHNIQUE: Axial images of the abdomen and pelvis were obtained without IV contrast. Images were reviewed in the axial, sagittal, and coronal planes. Au tomated exposure control was utilized for the study. A dose lowering technique was utilized adhering to the principles of ALARA. FINDINGS: Lung bases are unremarkable. There is fatty infiltration of the liver. There is mild biliary ductal dilatation. There are numerous calculi within the common bile duct that measure up to approximately 1.2 cm. There are gallstones within the gallbladder. There is no definite pericholecystic infiltration. The gallbladder is slightly distended. There is no peripancreatic infiltration. No pancreatic ductal dilatation is present. Evaluation of the abdomen and pelvis is suboptimal on this unenhanced examination. The spleen, adrenal glands and kidneys are unremarkable. There is no hydronephrosis. Mild mesenteric infiltration is noted with small lymph nodes. There is colonic diverticulosis without evidence for acute diverticulitis. The appendix is normal. No suspicious osseous lesions are noted. There is no lymphadenopathy. No free air, pneumatosis or portal venous gas is present. IMPRESSION: 1. Numerous common bile duct calculi that measure up to approximately 1.2 cm. Mild biliary ductal dilatation. No peripancreatic infiltration. 2. Cholelithiasis. Mild gallbladder distention without significant pericholecystic infiltration. 3. Fatty liver. 4. 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 Electronically signed by: Bryan Last M.D. 06/18/2019 10:56 AM Dictated: 06/18/19 1042 PG Care Time/CCT Total # of Minutes Spent Total Time Spent with Patient: Total time spent is greater than 50% in coordination of care (as documented) at patient's floor/unit and/or counseling patient: (1) Acute pancreatitis Acute pancreatitis complication: unspecified Pancreatitis type: unspecified pancreatitis type Qualified Code(s): K85.90 - Acute pancreatitis without necrosis or infection, unspecified
--- NOTE | 2019-06-20 12:16 | Gastroenterology Progress Note ---
Date of Service June 20, 2019 Assessment & Plan (1) Choledocholithiasis: (2) Gallstones: (3) Elevated LFTs: Pt is a 59 y/o male with gallstone pancreatitis (improved) who underwent ERCP and lap choley yesterday. He is doing well. Diet, fluids per surgery. Regarding bacteremia, would cover cholangitis with broad spectrum IV during hospitalization and cover with antibiotics after DC for 10 days, if final cultures do not recommend a more specific treatment. Will need ERCP in 4-6 weeks for removal of biliary stents. I placed a message in OP EPIC to order ERCP and have our schedulers contact this pt to arrange. GI will follow peripherally. Supervising Physician Co-Signing Physician Notes Attending attestation I have seen, examined this patient, and agree with the findings and above by our mid-level provider JAMES Mcgovern, with the following additions -patient has done well post ERCP as well as cholecystectomy and has minimal discomfort today. -Now with GNR blood, ID following and on abx IV and will be transitioned per their results -Will need stent removal appt with Dr. Coker in 4 wks -Follow LFT's -Diet per surgery -GI will sign off, call with [employer]. Subjective Mr. Alcaraz is a 59 yr old male who underwent ERCP yesterday with sphincterotomy and sweeping of the bile duct for choledocholithiasis. Today feeling well. Tolerated a clear liquid breakfast w/o any pain or nausea. Review of Systems Review of Systems: ROS: Gen: Denies weakness, fevers, weight loss Eyes: No eye redness, or pain, no recent vision changes Resp: No SOB, no cough Cardio: No palpitations/irregular beats, no chest pain GI: No abdominal pain, no nausea/vomiting : Denies pain on urination Skin: No jaundice, itching or new rashes Physical Exam Constitutional: WD/WN, vitals as above Eyes: PERRL, conjunctivae normal, anicteric sclerae ENMT: external ear and nose normal, oropharynx normal Neck: trachea midline, no thyromegaly Respiratory: normal respiratory effort, lungs clear to auscultation Cardiovascular: RRR, no murmur, no edema Gastrointestinal (Abdomen): Percussion/Palpation: + abdomen tender (mild epigastric tenderness and tenderness near incisions otherwise non tend) and abdomen soft Skin: no rashes, warm and dry Neurologic: PERRL, EOMI, accommodation nl, no face palsy, no dysarthria Psychiatric: A+Ox3, euthymic affect Lymphatic: no cervical or axillary lymphadenopathy Results & Data Vital Signs (Past 12 Hours) Vital Signs Temp Pulse Pulse Resp BP Pulse Ox Pulse Ox 06/20/19 11:25 36.6 C 87 16 108/78 94 06/20/19 09:03 36.6 C 90 16 100/67 94 06/20/19 08:00 94 06/20/19 07:25 82 06/20/19 06:59 36.5 C 85 18 106/69 95 06/20/19 03:20 36.4 C L 83 17 101/66 96 Laboratory Results No leukocytosis but preliminary cultures growing gram neg rods x 2. T Bili 4.5- >4.7, AST 157->70, ALT 279->182, Alk Phos 107->108. Diagnostic Findings ERCP yesterday: - Choledocholithiasis was found. Complete removal was accomplished by biliary sphincterotomy and balloon extraction. - The biliary tree was swept and pus was found. - Two biliary stents were placed into the common bile duct. - Indomethacin given to decrease risk of post-ERCP pancreatitis. Recommendation: - Observe patient's clinical course following today's ERCP with therapeutic intervention. - Repeat ERCP in 6 weeks to remove stent. - Use broad spectrum antibiotics for 10 days. Medications Administered On Zosyn
[2019-06-20] MEDS: LACTATED RINGER'S 1,000 ML IV SCH ×2 (13:56)
--- NOTE | 2019-06-20 16:41 | XRay Report ---
XR chest 1V portable HISTORY: 59 years-old Male postop SOB acute shortness of breath COMPARISON: Chest radiograph 06/18/2019 TECHNIQUE: Portable AP view of the chest FINDINGS: Cardiac silhouette is mildly enlarged, unchanged. There is mild right hemidiaphragmatic elevation. Il l-defined bibasilar opacities, right greater than left. No pneumothorax, large pleural effusion or ov ert pulmonary edema. IMPRESSION: 1. Mild right hemidiaphragmatic elevation with right greater than left bibasilar opacities suggestive of atelectasis versus pneumonitis. 2. Mild cardiomegaly without overt pulmonary edema. The above report was generated using voice recognition software. It may contain grammatical, syntax o r spelling errors. Electronically signed by: Guillermo Robert M.D. 06/20/2019 4:40 PM
--- NOTE | 2019-06-20 20:10 | Hospitalist Progress Note ---
Date of Service June 20, 2019 Assessment & Plan (1) Choledocholithiasis: Presented with abdominal pain. Found to have cholelithiasis, choledocholithiasis, and elevated lipase. Started on piperacillin/tazobactam for possible cholangitis. GI and General Surgery consulted. ERCP performed 06/[address] Coker. Choledocholithiasis was noted. Removal stones accomplished by biliary sphincterotomy and balloon extraction. The biliary tree was swept and pus was found. To biliary stents were placed into the common bile duct. Laparoscopic cholecystectomy performed 06/[address] Dela Cruz. Continue piperacillin/tazobactam for cholangitis and bacteremia. Advance diet per General Surgery. (2) Cholelithiasis: As noted above. (3) Acute pancreatitis: CT demonstrated choledocholithiasis with dilatation of common bile duct. Lipase 585. However, no CT evidence of pancreatitis. Management of biliary tract disease as discussed above. (4) Gram-negative bacteremia: 2 out of 2 blood cultures growing gram-negative bacilli. ID and sensitivities pending. Does not appear to be septic. Most likely source of bacteremia = cholangitis. ID consulted. At least 7 days of intravenous antibiotics recommended. Continue intravenous piperacillin/tazobactam pending final culture results. (5) Pulmonary atelectasis: Continue incentive spirometry. Mobilize. (6) Ulcerative colitis: Usually well controlled on mesalamine. Mesalamine can be associated with pancreatitis, but elevated lipase most likely secondary to choledocholithiasis. (7) HTN (hypertension): Hemodynamically stable. Continue lisinopril. (8) Type 2 diabetes mellitus: Diabetes mellitus type 2 usually managed with metformin and glyburide. Hemoglobin A1c = 7.8. Oral agents on hold secondary to acute illness. Random blood sugar at time of admission to 84. Fasting blood sugar today = 165. Lantus/NovoLog per protocol. (9) DVT prophylaxis: No anticoagulants initially due to anticipated procedures. SCDs ordered. Add enoxaparin. Ambulate. (10) Discharge planning issues: Anticipated discharge to home. Family Medicine follow-up with Dr. Holloway. Subjective Recheck for multiple problems. Patient seen in their room around 1530. Tired. No fever. No anginal symptoms. Feels somewhat SOB. No cough. Has some right sided abdominal discomfort. No nausea or vomiting. No diarrhea. Performing incentive spirometry. Ambulating in room. Review of Systems: As noted above. Physical Exam Constitutional: no acute distress Eyes: + anicteric sclerae Respiratory: no respiratory distress Auscultation: + diminished lung sounds (right base) Cardiovascular: Rate/Rhythm: regular rate and regular rhythm Heart Sounds: no gallop, no murmur and no cardiac rub Vessels: no JVD Extremities: no calf tenderness and no edema Gastrointestinal (Abdomen): normal bowel sounds, soft, nontender, no hepatosplenomegaly Skin: no rashes, warm and dry Psychiatric: Orientation: alert and oriented x 3 Results & Data Vital Signs (Past 12 Hours) Vital Signs Temp Pulse Pulse Resp BP BP Pulse Ox 06/20/19 19:05 37.1 C 95 H 20 135/80 92 06/20/19 16:09 36.8 C 93 H 16 137/78 94 06/20/19 15:27 36.7 C 88 20 124/73 97 06/20/19 14:57 86 06/20/19 11:25 36.6 C 87 16 108/78 94 06/20/19 09:03 36.6 C 90 16 100/67 94 06/20/19 08:00 Pulse Ox 06/20/19 19:05 06/20/19 16:09 06/20/19 15:27 06/20/19 14:57 06/20/19 11:25 06/20/19 09:03 06/20/19 08:00 94 Laboratory Results Laboratory Results - last 24 hr 06/19/19 06/20/19 06/20/19 20:19 06:49 06:49 WBC 5.36 RBC 4.42 L Hgb 12.0 L Hct 35.0 L MCV 79.2 L MCH 27.1 MCHC 34.3 RDW Std Deviation 48.3 H RDW Coeff of Gala 16.7 H Plt Count 170 MPV 9.7 Sodium 134 L Potassium 3.9 Chloride 103 Carbon Dioxide 23 Anion Gap 8.0 BUN 10 Creatinine 1.20 Est Cr Clr Drug Dosing 72.8 Est GFR ( Amer) 76.3 Est GFR (Non-Af Amer) 65.8 BUN/Creatinine Ratio 8.0 L Glucose 169 H POC Glucose 173 H Calcium 8.5 Total Bilirubin 4.7 H AST 70 H ALT 182 H Alkaline Phosphatase 69 Total Protein 6.0 L Albumin 2.7 L Globulin 3.3 Albumin/Globulin Ratio 0.8 L 06/20/19 06/20/19 06/20/19 07:00 11:23 16:17 WBC RBC Hgb Hct MCV MCH MCHC RDW Std Deviation RDW Coeff of Gala Plt Count MPV Sodium Potassium Chloride Carbon Dioxide Anion Gap BUN Creatinine Est Cr Clr Drug Dosing Est GFR ( Amer) Est GFR (Non-Af Amer) BUN/Creatinine Ratio Glucose POC Glucose 165 H 150 H 209 H Calcium Total Bilirubin AST ALT Alkaline Phosphatase Total Protein Albumin Globulin Albumin/Globulin Ratio Microbiology 06/18/19 15:04 Blood Aerobic Blood Culture - Preliminary No growth in Aerobic bottle after 48 hours. 06/18/19 15:04 Blood Anaerobic Blood Culture - Preliminary Gram negative bacilli 06/18/19 14:55 Blood Aerobic Blood Culture - Preliminary No growth in Aerobic bottle after 48 hours. 06/18/19 14:55 Blood Anaerobic Blood Culture - Preliminary Gram negative bacilli Diagnostic Findings Portable chest x-ray reviewed by the undersigned and formally interpreted by Radiology: IMPRESSION: 1. Mild right hemidiaphragmatic elevation with right greater than left bibasilar opacities suggestive of atelectasis versus pneumonitis. 2. Mild cardiomegaly without overt pulmonary edema. The above report was generated using voice recognition software. It may contain grammatical, syntax or spelling errors. Electronically signed by: Guillermo Robert M.D. 06/20/2019 4:40 PM (1) Acute pancreatitis Acute pancreatitis complication: unspecified Pancreatitis type: unspecified pancreatitis type Qualified Code(s): K85.90 - Acute pancreatitis without necrosis or infection, unspecified
[2019-06-20] MEDS: ZOLPIDEM TARTRATE 5 MG TAB PO PRN (21:20)
[2019-06-20] MEDS: ATORVASTATIN 20 MG TAB PO SCH (21:20)
[2019-06-20] MEDS: FENOFIBRATE NANOCRYSTALLIZED 145 MG TABLET PO SCH (21:20)
[2019-06-20] MEDS: INSULIN GLARGINE SOLOSTAR 100 UNITS/ML 3 ML PEN SC SCH (21:23)
[2019-06-20] MEDS: PIPERACILLIN/TAZOBACTAM 3.375 GM in DEXTROSE 5% 100 ML IV SCH (22:18)
[2019-06-21] MEDS: OXYCODONE/ACETAMINOPHEN 5mg/325mg TAB PO PRN (04:01)
[2019-06-21] MEDS: PIPERACILLIN/TAZOBACTAM 3.375 GM in DEXTROSE 5% 100 ML IV SCH ×2 (04:02→09:27)
--- NOTE | 2019-06-21 07:46 | Surgery Progress Note ---
Date of Service June 21, 2019 Assessment & Plan (1) Choledocholithiasis: POD#2 ERCP and Lap cholecystectomy Labs pending for this AM, will follow Diet tolerated and pain manageable Encourage incentive spirometry and activity Antibiotic plan per Infectious Disease Will leave instructions for patient to follow up in surgery clinic within 1-[address] Dela Cruz Supervising Physician Co-Signing Physician Notes Patient seen and examined, agree with above. POD #2 lap cholecystectomy and ERCP for choledocholithiasis with cholangitis and bacteremia. Cultures have grown out E. coli. ID is recommending total of 7 days IV treatment. He is tolerating regular diet and is otherwise doing well without pain. He feels much better than prior to arrival. From a surgery standpoint he is okay for discharge, follow-up in the clinic in 2 weeks. Appreciate infectious disease recommendations regarding antibiotic coverage treatment. Educated on wound care instructions and activity restrictions. Return precautions given. Subjective Patient denies nausea/vomiting. Tolerating a regular diet. Still endorses some right upper abdominal pain. Working on IS and activity. Physical Exam Physical Exam: awake/alert, moving around room this AM Constitutional: well developed and well nourished; no acute distress Respiratory: normal respiratory effort Gastrointestinal (Abdomen): Percussion/Palpation: + abdomen tender (mildly sadia-incisionally) and abdomen soft Results & Data Vital Signs (Past 12 Hours) Vital Signs Temp Pulse Resp BP BP Pulse Ox 06/21/19 07:12 36.7 C 84 20 120/78 92 06/21/19 03:57 36.8 C 84 18 126/76 93 06/20/19 23:22 36.7 C 92 H 18 121/74 93 PG Care Time/CCT Total # of Minutes Spent Total Time Spent with Patient: Total time spent is greater than 50% in coordination of care (as documented) at patient's floor/unit and/or counseling patient:
[2019-06-21 08:05] LABS: BUN Creatinine Ratio 10.6 (10-20); Calcium 8.3 mg/dl (8.5-10.1); Creatinine Clr Calc Pharmacy 88.8 ml/min; Est GFR (African American) 86.6; Est GFR (Non-African American) 74.7; Potassium 3.5 mmol/L (3.5-5.1)
[2019-06-21] MEDS: DICYCLOMINE HCL 10 MG CAP PO SCH ×2 (09:27→20:46)
[2019-06-21] MEDS: lisinopriL 10 MG TAB PO SCH (09:27)
[2019-06-21] MEDS: ENOXAPARIN INJ 40 MG/0.4 ML SYR SQ SCH (09:28)
[2019-06-21] MEDS: PANTOprazole 40 MG TAB PO SCH (09:28)
[2019-06-21] MEDS: ASPIRIN 81 MG ECTAB PO SCH (09:28)
[2019-06-21] MEDS: CYANOCOBALAMIN 500 MCG TABLET (VITAMIN B-12) PO SCH (09:28)
[2019-06-21] MEDS: INSULIN GLARGINE SOLOSTAR 100 UNITS/ML 3 ML PEN SC SCH ×2 (09:29→20:52)
[2019-06-21] MEDS: LIALDA 1.2 GM PO SCH ×2 (09:30→20:47)
[2019-06-21] MEDS: INSULIN ASPART 100 UNITS/ML 3 ML PEN SC SCH ×4 (09:30→20:53)
[2019-06-21] MEDS ORDERED: TRAMADOL HCL 50 MG TABLET PO PRN (13:04)
--- NOTE | 2019-06-21 14:59 | Infectious Disease Progress Nt ---
Date of Service June 21, 2019 Assessment & Plan (1) Gram-negative bacteremia: 59-year-old diabetic male with acute cholecystitis, cholangitis, choledocholithiasis, and pancreatitis, with E. coli bacteremia. Patient appears stable enough for discharge, will need several more days of IV antibiotics to complete 1 week of IV therapy for bacteremia. Will change patient to IV ertapenem to allow easier outpatient therapy. Would then follow-up with 1 week of Augmentin as well as he continues to do well. (2) Cholangitis: (3) Choledocholithiasis: (4) Acute pancreatitis: Subjective Patient seen in follow-up for cholangitis and choledocholithiasis status post cholecystectomy and stent placement. Patient denies nausea/vomiting. Tolerating a regular diet. Mild right upper quadrant pain. No fever. Cultures have grown sensitive E. coli. Review of Systems Review of Systems: All systems reviewed & are unremarkable except as noted in HPI & below Physical Exam Constitutional: WD/WN, vitals as above comfortable; no acute distress Eyes: PERRL, conjunctivae normal, anicteric sclerae ENMT: external ear and nose normal, oropharynx normal Neck: trachea midline, no thyromegaly neck nontender Respiratory: normal respiratory effort, lungs clear to auscultation normal percussion; does not use accessory muscles Cardiovascular: Rate/Rhythm: regular rate and regular rhythm Heart Sounds: normal S1 and normal S2; no gallop, no murmur and no cardiac rub Vessels: normal peripheral pulses; no JVD Gastrointestinal (Abdomen): Inspection/Auscultation: + abdomen distended and + hyperactive bowel sounds Percussion/Palpation: + abdomen tender (Epigastrium and right upper quadrant); no hepatosplenomegaly and no abdominal mass Musculoskeletal: no cyanosis or clubbing, extremities motor strength 5/5 Spine: thoracic spine normal to inspection and lumbar spine normal to inspection; no cervical spinal tenderness Skin: no rashes, warm and dry normal turgor; no lesions Neurologic: patellar DTR's 2+ bilat, sensation intact no focal motor deficits Psychiatric: A+Ox3, euthymic affect Orientation: cooperative Lymphatic: no cervical or axillary lymphadenopathy no inguinal lymphadenopathy Results & Data Vital Signs (Past 12 Hours) Vital Signs Temp Pulse Pulse Pulse Resp BP BP 06/21/19 13:05 36.7 C 84 16 122/80 06/21/19 11:19 80 06/21/19 07:12 36.7 C 84 20 120/78 06/21/19 03:57 36.8 C 84 18 126/76 Pulse Ox 06/21/19 13:05 97 06/21/19 11:19 06/21/19 07:12 92 06/21/19 03:57 93 Laboratory Results BMP 06/21/19 06:41 Sodium 132 L Potassium 3.5 Chloride 103 Carbon Dioxide 23 BUN 11 Creatinine 1.08 Glucose 130 H Calcium 8.3 L Diagnostic Findings Microbiology 06/18/19 15:04 Blood Aerobic Blood Culture - Preliminary No growth in Aerobic bottle after 48 hours. 06/18/19 15:04 Blood Anaerobic Blood Culture - Preliminary Escherichia coli 06/18/19 14:55 Blood Aerobic Blood Culture - Preliminary No growth in Aerobic bottle after 48 hours. 06/18/19 14:55 Blood Anaerobic Blood Culture - Preliminary Escherichia coli PG Care Time/CCT Total # of Minutes Spent Total Time Spent with Patient: Total time spent is greater than 50% in coordination of care (as documented) at patient's floor/unit and/or counseling patient: (1) Acute pancreatitis Acute pancreatitis complication: unspecified Pancreatitis type: unspecified pancreatitis type Qualified Code(s): K85.90 - Acute pancreatitis without necrosis or infection, unspecified
[2019-06-21] MEDS ORDERED: cefTRIAXone SODIUM 2,000 MG in DEXTROSE 5% 50 ML IV SCH (15:00)
[2019-06-21] MEDS: FENOFIBRATE NANOCRYSTALLIZED 145 MG TABLET PO SCH (20:46)
[2019-06-21] MEDS: ATORVASTATIN 20 MG TAB PO SCH (20:46)
--- NOTE | 2019-06-21 22:33 | Hospitalist Progress Note ---
Date of Service June 21, 2019 Assessment & Plan (1) Choledocholithiasis: Presented with abdominal pain. Found to have cholelithiasis, choledocholithiasis, and elevated lipase. Started on piperacillin/tazobactam for possible cholangitis. GI and General Surgery consulted. ERCP performed 06/[address] Coker. Choledocholithiasis was noted. Removal stones accomplished by biliary sphincterotomy and balloon extraction. The biliary tree was swept and pus was found. 2 biliary stents were placed into the common bile duct. Laparoscopic cholecystectomy performed 06/[address] Dela Cruz. Received piperacillin/tazobactam for cholangitis and bacteremia. Diet advanced and tolerated. Blood cultures growing pansensitive E coli; management as discussed below. (2) Cholelithiasis: As noted above. (3) Acute pancreatitis: CT demonstrated choledocholithiasis with dilatation of common bile duct. Lipase 585. However, no CT evidence of pancreatitis. Management of biliary tract disease as discussed above. (4) Gram-negative bacteremia: 2 out of 2 blood cultures growing gram-negative bacilli. ID and sensitivities pending. Does not appear to be septic. Most likely source of bacteremia = cholangitis. Received IV piperacillin / tazobactam. ID consulted. Blood cultures growing pansensitive E coli Transition to IV ceftriaxone to complete 7 total days of IV antibiotics, then transition to oral therapy with amoxicillin / clavulanic acid x 7 more days. (5) Pulmonary atelectasis: Continue incentive spirometry. Mobilize. (6) Ulcerative colitis: Usually well controlled on mesalamine. Mesalamine can be associated with pancreatitis, but elevated lipase most likely secondary to choledocholithiasis. (7) HTN (hypertension): Hemodynamically stable. Continue lisinopril. (8) Type 2 diabetes mellitus: Diabetes mellitus type 2 usually managed with metformin and glyburide. Hemoglobin A1c = 7.8. Oral agents on hold secondary to acute illness. Random blood sugar at time of admission to 84. Fasting blood sugar today = 119. Lantus/NovoLog per protocol. (9) DVT prophylaxis: No anticoagulants initially due to anticipated procedures. SCDs ordered. Add enoxaparin. Ambulate. (10) Discharge planning issues: Anticipated discharge to home. Family Medicine follow-up with Dr. Holloway. Subjective Recheck for multiple problems. Patient seen in their room around 1110. Feeling better. No fever. No chest pain. No cough or SOB. Performing incentive spirometry. Less right sided abdominal discomfort. No nausea or vomiting. No diarrhea. No BM since surgery. Ambulating in hallway. Review of Systems: As noted above. Physical Exam Constitutional: no acute distress Eyes: + anicteric sclerae Respiratory: no respiratory distress Auscultation: lungs clear to auscultation bilaterally Cardiovascular: Rate/Rhythm: regular rate and regular rhythm Heart Sounds: no gallop, no murmur and no cardiac rub Vessels: no JVD Extremities: no calf tenderness and no edema Gastrointestinal (Abdomen): normal bowel sounds, soft, nontender, no hepatosplenomegaly Skin: no rashes, warm and dry Psychiatric: Orientation: alert and oriented x 3 Results & Data Vital Signs (Past 12 Hours) Vital Signs Temp Pulse Pulse Resp BP Pulse Ox 06/21/19 15:00 36.7 C 84 17 129/84 95 06/21/19 13:05 36.7 C 84 16 122/80 97 06/21/19 11:19 80 Laboratory Results 06/20/19 06:49 06/21/19 06:41 Microbiology 06/18/19 15:04 Blood Aerobic Blood Culture - Preliminary No growth in Aerobic bottle after 48 hours. 06/18/19 15:04 Blood Anaerobic Blood Culture - Preliminary Escherichia coli 06/18/19 14:55 Blood Aerobic Blood Culture - Preliminary No growth in Aerobic bottle after 48 hours. 06/18/19 14:55 Blood Anaerobic Blood Culture - Preliminary Escherichia coli (1) Acute pancreatitis Acute pancreatitis complication: unspecified Pancreatitis type: unspecified pancreatitis type Qualified Code(s): K85.90 - Acute pancreatitis without necrosis or infection, unspecified
[2019-06-22 06:46] LABS: Hematocrit (blood only) 36.2 % (42-52); Hemoglobin 12.3 g/dL (14.0-18.0); Mean Corpuscular Hemoglobin 27.3 pg (25-34); Mean Corpuscular Volume 80.3 fL (80-100); Mean Platelet Volume 9.8 fL (7.4-10.4); Platelet Count 244 K/uL (130-400); RDW Coefficient of Variation 16.7 % (11.5-14.5); RDW Standard Deviation 48.9 fL (36.4-46.3); Red Blood Count 4.51 M/uL (4.7-6.1); White Blood Count 4.21 K/uL (4.8-10.8)
[2019-06-22 07:28] LABS: Albumin Level 2.9 gm/dl (3.4-5.0); BUN Creatinine Ratio 12.7 (10-20); Bilirubin Direct 0.8 mg/dl (0-0.2); Calcium 8.8 mg/dl (8.5-10.1); Creatinine Clr Calc Pharmacy 93.1 ml/min; Est GFR (African American) 91.7; Est GFR (Non-African American) 79.1; Potassium 3.7 mmol/L (3.5-5.1)
[2019-06-22 07:33] LABS: Albumin Globulin Ratio 0.7 (0.9-2); Bilirubin,Total 1.2 mg/dl (0.2-1); Globulin 4.5 gm/dl (2.5-4.0); Total Protein 7.4 gm/dl (6.4-8.2)
[2019-06-22] MEDS: CYANOCOBALAMIN 500 MCG TABLET (VITAMIN B-12) PO SCH (09:05)
[2019-06-22] MEDS: lisinopriL 10 MG TAB PO SCH (09:05)
[2019-06-22] MEDS: ENOXAPARIN INJ 40 MG/0.4 ML SYR SQ SCH (09:05)
[2019-06-22] MEDS: INSULIN GLARGINE SOLOSTAR 100 UNITS/ML 3 ML PEN SC SCH (09:06)
[2019-06-22] MEDS: DICYCLOMINE HCL 10 MG CAP PO SCH (09:07)
[2019-06-22] MEDS: LIALDA 1.2 GM PO SCH (09:07)
[2019-06-22] MEDS: INSULIN ASPART 100 UNITS/ML 3 ML PEN SC SCH ×2 (09:08→13:56)
[2019-06-22] MEDS ORDERED: cefTRIAXone SODIUM 2,000 MG in DEXTROSE 5% 50 ML IV SCH (10:00)
--- NOTE | 2019-06-22 13:34 | Hospitalist Progress Note ---
Date of Service June 22, 2019 Assessment & Plan (1) Choledocholithiasis: Presented with abdominal pain. Found to have cholelithiasis, choledocholithiasis, and elevated lipase. Started on piperacillin/tazobactam for possible cholangitis. GI and General Surgery consulted. ERCP performed 06/[address] Coker. Choledocholithiasis was noted. Removal stones accomplished by biliary sphincterotomy and balloon extraction. The biliary tree was swept and pus was found. 2 biliary stents were placed into the common bile duct. Laparoscopic cholecystectomy performed 06/[address] Dela Cruz. Pathology from demonstrated acute and chronic cholecystitis. Received piperacillin/tazobactam for cholangitis and bacteremia. Diet advanced and tolerated. Blood cultures grew pansensitive E coli; management as discussed below. ERCP for stent removal in 4-6 weeks. (2) Cholangitis: Antibiotic management as discussed below. (3) Gram-negative bacteremia: 2 out of 2 blood cultures growing gram-negative bacilli. ID and sensitivities pending. Does not appear to be septic. Most likely source of bacteremia = cholangitis. Received IV piperacillin / tazobactam. ID consulted. Blood cultures growing pansensitive E coli Transition to IV ceftriaxone to complete 7 total days of IV antibiotics, then transition to oral therapy with amoxicillin / clavulanic acid x 7 more days. Ultrasound-guided peripheral IV was placed and arrangements were made for 3 more days of intravenous ceftriaxone at [facility]. (4) Cholelithiasis: As noted above. (5) Cholecystitis: Pathology from cholecystectomy demonstrated acute and chronic cholecystitis. (6) Acute pancreatitis: CT demonstrated choledocholithiasis with dilatation of common bile duct. Lipase 585. However, no CT evidence of pancreatitis. Management of biliary tract disease as discussed above. (7) Ulcerative colitis: Usually well controlled on mesalamine. Mesalamine can be associated with pancreatitis, but elevated lipase most likely secondary to choledocholithiasis. (8) Pulmonary atelectasis: Continue incentive spirometry. Mobilize. (9) HTN (hypertension): Hemodynamically stable. Continue lisinopril. (10) Type 2 diabetes mellitus: Diabetes mellitus type 2 usually managed with metformin and glyburide. Hemoglobin A1c = 7.8. Oral agents on hold secondary to acute illness. Random blood sugar at time of admission to 84. Fasting blood sugar today = 120. Received Lantus/NovoLog per protocol. Discharge on usual regimen. (11) DVT prophylaxis: No anticoagulants initially due to anticipated procedures. SCDs ordered. Added enoxaparin. Ambulating. (12) Discharge planning issues: Discharge to home. Family Medicine follow-up with Dr. Holloway. General Surgery follow-up with Dr. Dela Cruz. GI follow-up with [facility]- to have ERCP for stent removal in 4-6 weeks. Subjective Recheck for multiple problems. Pt seen in his room around 1200. Doing well. Anxious to go home. No fever. No chest pain, cough, shortness of breath. Postoperative abdominal pain much improved. No nausea, vomiting, diarrhea. Ambulating. Physical Exam Constitutional: no acute distress Eyes: + anicteric sclerae Respiratory: no respiratory distress Auscultation: lungs clear to auscultation bilaterally Cardiovascular: Rate/Rhythm: regular rate and regular rhythm Heart Sounds: no gallop, no murmur and no cardiac rub Vessels: no JVD Extremities: no calf tenderness and no edema Gastrointestinal (Abdomen): normal bowel sounds, soft, nontender, no hepatosplenomegaly surgical wounds without erythema or drainage Skin: no rashes, warm and dry Psychiatric: Orientation: alert and oriented x 3 Results & Data Vital Signs (Past 12 Hours) Vital Signs Temp Pulse Resp BP Pulse Ox 06/22/19 07:35 36.7 C 81 18 127/84 95 (1) Acute pancreatitis Acute pancreatitis complication: unspecified Pancreatitis type: unspecified pancreatitis type Qualified Code(s): K85.90 - Acute pancreatitis without necrosis or infection, unspecified
--- NOTE | 2019-06-23 20:01 | Discharge Summary ---
Date of Service Date of Admission: 06/18/19 Date of Discharge: 06/22/19 Admission HPI Per Admitting Provider This is a 59yo M with a PMH of DM II, ulcerative colitis, HTN, HLD and other medical problems listed below who presents with chest pain beginning this morning. Developed chest pain/lower sternal pain around 0830 this morning with associated nausea, shortness of breath, chills and swelling. No radiation to jaw or arms. States that pain felt crushing and rated it a 7/10. Was having breakfast around the time that pain started. Came to ED for further evaluation. Found to be afebrile and tachycardic with HR 95-115. EKG with normal sinus rhythm. Initial troponin negative. Noted to have elevated liver enzymes with AST of 190 and ALT of 170. Lipase elevated at 585. 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 Pain had resolved after being given morphine in the ED. No longer nauseous. Denies any lightheadedness, visual changes, palpitations, shortness of breath, vomiting, dysuria, diarrhea or constipation. Has 2-3 bowel movements a day at baseline in setting of ulcerative colitis. Principal Diagnosis acute cholecystitis cholelithiasis choledocholithiasis cholangitis E coli bacteremia gall stone pancreatitis Discharge Data Allergies Allergy/AdvReac Type Severity Reaction Status Date / Time No Known Allergies Allergy Verified 06/23/19 08:09 Consultations 06/18/19 11:15 ED Decision to Admit Stat 06/18/19 14:16 Consult Gastroenterology Routine Consult General Surgery Routine 06/19/19 22:13 Consult Infectious Diseases Routine Procedures Performed Operation Date: 06/19/19 13:30 Actual Procedures p Endoscopic Retrograde Cholangiopancreatogram(Not Applicable) - Morgan godwin Laparoscopic Cholecystectomy(Not Applicable) - Hiram Dela Cruz DO, FACS Ordered Studies 06/18/19 10:10 CT abd pelvis wo con Stat 06/19/19 12:36 [place] ERCP biliary ductal Routine Hospital Course (1) Choledocholithiasis: Presented with abdominal pain. Found to have cholelithiasis, choledocholithiasis, and elevated lipase. Started on piperacillin/tazobactam for possible cholangitis. GI and General Surgery consulted. ERCP performed 06/[address] Coker. Choledocholithiasis was noted. Removal stones accomplished by biliary sphincterotomy and balloon extraction. The biliary tree was swept and pus was found. 2 biliary stents were placed into the common bile duct. Laparoscopic cholecystectomy performed 06/[address] Dela Cruz. Pathology from demonstrated acute and chronic cholecystitis. Received piperacillin/tazobactam for cholangitis and bacteremia. Diet advanced and tolerated. Blood cultures grew pansensitive E coli; management as discussed below. ERCP for stent removal in 4-6 weeks. (2) Cholangitis: Antibiotic management as discussed below. (3) Gram-negative bacteremia: 2 out of 2 blood cultures growing gram-negative bacilli. ID and sensitivities pending. Does not appear to be septic. Most likely source of bacteremia = cholangitis. Received IV piperacillin / tazobactam. ID consulted. Blood cultures growing pansensitive E coli Transition to IV ceftriaxone to complete 7 total days of IV antibiotics, then transition to oral therapy with amoxicillin / clavulanic acid x 7 more days. Ultrasound-guided peripheral IV was placed and arrangements were made for 3 more days of intravenous ceftriaxone at [facility]. (4) Cholelithiasis: As noted above. (5) Cholecystitis: Pathology from cholecystectomy demonstrated acute and chronic cholecystitis. (6) Acute pancreatitis: CT demonstrated choledocholithiasis with dilatation of common bile duct. Lipase 585. However, no CT evidence of pancreatitis. Management of biliary tract disease as discussed above. (7) Pulmonary atelectasis: Continue incentive spirometry. Mobilize. (8) Ulcerative colitis: Usually well controlled on mesalamine. Mesalamine can be associated with pancreatitis, but elevated lipase most likely secondary to choledocholithiasis. (9) HTN (hypertension): Hemodynamically stable. Continue lisinopril. (10) Type 2 diabetes mellitus: Diabetes mellitus type 2 usually managed with metformin and glyburide. Hemoglobin A1c = 7.8. Oral agents on hold secondary to acute illness. Random blood sugar at time of admission to 84. Fasting blood sugar today = 120. Received Lantus/NovoLog per protocol. Discharge on usual regimen. (11) DVT prophylaxis: No anticoagulants initially due to anticipated procedures. SCDs ordered. Added enoxaparin. Ambulating. (12) Discharge planning issues: Discharged to home. Family Medicine follow-up with Dr. Holloway. General Surgery follow-up with Dr. Dela Cruz. GI follow-up with [facility]- to have ERCP for stent removal in 4-6 weeks. Total Time Total Time Spent Total Time Spent (In Minutes): 40 Discharge Plan Discharge Items Patient Disposition: Home - Self-Care Reason For Visit: abdominal pain Discharge Diagnosis: gall stones cholangitis (infection in bile duct) pancreatitis infection in blood stream from cholangitis Condition on Discharge: Good Activity: Per Instructions section Lifting: No more than 10 pounds Bathing Comment: you may shower; no soaking in tubs Exercise/Sports: Wait until after follow-up appointment Driving/Machine Use: do not resume driving while taking narcotics for pain Non-emergency contact: Surgeon Call non-emergency contact if: you have any medication questions, your symptoms worsen, your pain is not controlled, your pain is worsening, you have a fever, your temperature is above 101.5, your wound has increased redness, your wound has increased drainage and your wound pain has increased Follow-up/Referrals: Hiram Dela Cruz DO, FACS [Physician] - (Please call the office to schedule follow up in clinic within 1-2 weeks. You may call the office sooner if you have any questions/concerns.) Mayo Holloway MD [Primary Care Provider] - (Office will call you with appointment early next week.) Diet: Carb Consistent or DM2, Heart Healthy and Low Fat Addtl Attending Provider Instructions: MEDICATION CHANGES: ceftriaxone (Rocephin) 2 mgs intravenously daily for 3 days at [facility] amoxicillin / clavulanic acid (Augmentin) 875 mg twice a day with food for 7 days, starting on Tuesday 06/26 acetaminophen (Extra Strength Tylenol) 2 pills every 6 hours as needed for moderate pain tramadol (Ultram) 50 mg every 6 hours as needed for severe pain May use Percocet ordered by Dr. Dela Cruz for very severe pain, but may cause constipation and drowsiness. SUMMARY OF TEST RESULTS: Pathology report from gallbladder showed gallstones and cholecystitis (inflammation). PENDING TEST RESULTS: none RECOMMENDATIONS FOR FOLLOW-UP: Please call Dr. Dela Cruz office for surgical recheck. I was unable to make appointment for you at [facility]. Dr. Holloway's office will contact you with appointment. OTHER INSTRUCTIONS: Resume your usual medications for diabetes. Call if blood sugars less than 80 or greater than 250. Continue doing breathing exercises every 1-2 hours while awake until abdominal pain has resolved. Seek medical attention if you have: * temperature above 101 * chest pain or trouble breathing * abdominal pain, nausea, vomiting * diarrhea, dark stools or bloody stools * any unanswered questions or concerns Call 911 if symptoms are severe. Please take good care of yourself. Call if you have any questions or problems. You can reach a [facility] hospitalist on duty at [facility] 24 hours a day by calling [phone]. My cell # is [phone]. Pending Studies at Discharge: No Stand-Alone Forms: Call Back Authorization, [facility], Opioid Pain Management, Smoking Cessation Medications and DC Order Prescriptions: New oxycodone-acetaminophen [Percocet] 5-325 mg tablet 1 - 2 tab PO .every 4-6 hours PRN (Reason: pain, for initial therapy. max 8 per day) Qty: 15 RF: 0 ceftriaxone 2 gram recon soln 2 gm IV DAILY Qty: 3 RF: 0 amoxicillin-pot clavulanate 875-125 mg tablet 1 tab PO BID Qty: 14 RF: 0 tramadol 50 mg tablet 50 mg PO Q6H PRN (Reason: severe pain) Qty: 20 RF: 0 acetaminophen 500 mg tablet 1,000 mg PO Q8H PRN (Reason: moderate pain) Qty: 60 RF: 0 Continued sildenafil 100 mg Tablet 100 mg PO DAILY PRN (Reason: Erectile Dysfunction) RF: 0 atorvastatin 20 mg Tablet 20 mg PO HS RF: 0 glyburide 5 mg Tablet 5 mg PO BID RF: 0 aspirin 81 mg Tablet,Delayed Release (Dr/Ec) 81 mg PO Q2D RF: 0 lisinopril 10 mg Tablet 10 mg PO DAILY RF: 0 omeprazole 20 mg Capsule,Delayed Release(Dr/Ec) 20 mg PO Q2D RF: 0 cyanocobalamin (vitamin B-12) 1,000 mcg Tablet, Sublingual 1,000 mcg SUBLINGUAL DAILY RF: 0 metformin 500 mg Tablet Extended Release 24 Hr 500 mg PO BID RF: 0 dicyclomine 10 mg Capsule 10 mg PO BID RF: 0 fenofibrate 160 mg Tablet 160 mg PO HS RF: 0 mesalamine [Lialda] 1.2 gram Tablet,Delayed Release (Dr/Ec) 1.2 g PO BID RF: 0 Discharge Orders: Discharge Order (Routine); Ordered 06/22/19 Ordered By: Gerald Eduardo Admission Data Admit Date/Time: 06/18/19 12:20 Attending Provider: Gerald Eduardo Admit Provider: Karin Allred Primary Care Provider: Mayo Holloway Other Providers: Karin Allred ; Jason Bolaños ; Hiram Dela Cruz ; Mariano Partida ; Eliz Sandoval Other Interventions: Discharge Summary Assessment (RN) Last Done: 06/22/19 14:08 DC Date/Time DO NOT enter until pt leaves facility: 06/22/19 14:24
== END 2019-06-22 14:24 | disposition home or self-care (01) | DRG 417 ==
LOC: ED 09:49 → SUATTDRO 12:20 → 3N 12:20 → 2S 15:27 → 3N 06-21 12:55